=== PATIENT | female | born 1995 | race Caucasian/White ===

== ENCOUNTER 2022-04-01 02:17 | Outpatient (CLI) | payer BC, SELFPAY ==
[2022-04-01 11:23] LABS: Abs Immature Grans 0.04 10^3/uL (0.0-0.06); Absolute Basophil Count 0.06 10^3/uL (0.0-0.2); Absolute Eosinophil Count 0.61 10^3/uL (0.0-0.7); Absolute Lymphocyte Count 2.27 10^3/uL (1.2-3.4); Absolute Monocyte Count 0.71 10^3/uL (0.1-0.8); Absolute Neutrophil Count 5.88 10^3/uL (1.2-6.7); Basophils % 0.6; Eosinophils % 6.4; HCT 39.3 % (36.0-46.0); HGB 13.1 g/dL (11.2-15.7); Immature Grans % 0.4; Lymphocytes % 23.7; MCH 29.8 pg (27.0-33.0); MCHC 33.3 % (32.0-36.0); MCV 90 fL (80-95); MPV 9.1 fL (8.0-11.0); Monocytes % 7.4; Neutrophils % 61.5; Platelet Count 334 10^3/uL (130-400); RBC 4.39 10^6/uL (3.93-5.22); RDW 11.8 % (11.7-14.6); RDW-SD 38.2 fL; WBC 9.57 10^3/uL (4.4-10.8)
[2022-04-01 11:41] LABS: Glucose,1 Hr (Glucola) 134 mg/dL (80-140)
[2022-04-01 12:00] LABS: TSH (W/Ref FT4) 1.42 uIU/mL (0.36-3.74)
[2022-04-02 09:29] LABS: Hepatitis B Surface Ag Negative (Negative)
[2022-04-02 10:13] LABS: Hepatitis C Ab w Rflx HCV PCR Negative (Negative)
[2022-04-02 10:38] LABS: HIV-1/2 Ag & Ab Screen Negative (Negative)
[2022-04-02 11:37] LABS: Varicella IgG Antibody Positive (See Note)
[2022-04-02 11:46] LABS: Rubella IgG Ab (UVM) Positive (See Note)
[2022-04-02 22:57] LABS: Syphilis IgG w/Reflex Nonreactive (Nonreactive)
== END 2022-04-01 02:18 | disposition home or self-care (01) ==
LOC: LBO 02:17
PROVIDERS: Visit Provider Advanced Practice Midwife
DX: Z34.91 Encounter for supervision of normal pregnancy, unspecified, first trimester
CPT/HCPCS: 36415; 82950; 86787; 86803; 86850; 86900; 86901; 87340; 87389; 84443; 85025; 86762; 86780

== ENCOUNTER 2022-04-01 11:44 | Outpatient (REF) | payer BC, SELFPAY ==
--- NOTE | 2022-04-01 10:00 | PAPFT_PTH ---
PATIENT: Sakshi Wilcox LOC: [facility] U#:[id number] AGE/SX: 26/F ROOM: RE04/01/[address]: Christal Mcnally CNM : 1995 BED: DIS: 04/01/2022 SPEC #: [id number] RECD: 04/01/22 13:06 STATUS: GALE RESalty #: [id number] VERONA: 04/01/22 10:[address]: Christal Mcnally DEPT: [facility] Cytology RECD BY: Mai Ceja Tissues: 1 - CX/ENDOCX FOR PAP SMEARS Procedures: PAP THIN PREP/UVM Screening HPV DNA PROBE Comments: [id number] (CHLAMYDIA/GC)
[2022-04-01 15:41] LABS: *AMPHETAMINES SCREEN URINE Negative (Negative); *BARBITURATES SCREEN URINE Negative (Negative); *BENZODIAZEPINES SCREEN URINE Negative (Negative); Cannabinoids THC Negative (Negative); Cocaine Screen,Urine Negative (Negative); METHADONE URINE SCREEN Negative (Negative); OPIATES URINE SCREEN Negative (Negative)
[2022-04-01 15:50] LABS: Tricyclic Antidepressants Negative (Negative)
[2022-04-02 14:30] LABS: Chlamydia Result Negative (Negative); GC Result Negative (Negative)
[2022-04-07 11:23] LABS: Buprenorphine Negative ng/mL (Cutoff: 5.0); Norbuprenorphine Negative ng/mL (Cutoff: 2.5)
== END 2022-04-01 11:45 | disposition home or self-care (01) ==
LOC: LBN 11:44
PROVIDERS: Visit Provider Advanced Practice Midwife
DX: Z34.91 Encounter for supervision of normal pregnancy, unspecified, first trimester (principal); Z11.3 Encounter for screening for infections with a predominantly sexual mode of transmission; Z12.4 Encounter for screening for malignant neoplasm of cervix; Z3A.11 11 weeks gestation of pregnancy; Z11.51 Encounter for screening for human papillomavirus (HPV)
CPT/HCPCS: 80307; 80348; 87491; 87591; 88142; 87086; 87624

== ENCOUNTER 2022-05-26 01:11 | Outpatient (CLI) | payer BC, SELFPAY ==
--- NOTE | 2022-05-26 07:30 | DI.US_ITS ---
Exam(s) US OB 2-3 TRIMESTER W MOD EXAM: US OB 2-3 TRIMESTER W MOD CLINICAL HISTORY: anatomy survey,z34.90. TECHNIQUE: Transabdominal obstetrical ultrasound was performed. COMPARISON: US POCUS EXAM from 03/10/2022 FINDINGS: There is a single viable intrauterine gestation with cardiac activity identified-144 bpm. Amniotic fluid: There is a normal amount of amniotic fluid. Placental location: The placenta is posterior grade 1,with no evidence of placenta previa.Distance fr om the tip of the placenta to the in internal cervical os is 3.2 cm ANATOMY: A 3 vessel umbilical cord is seen. A four-chamber cardiac view was obtained. Right and left ventricular outflow tracts were imaged. There are no obvious abnormalities of the spinal column evident. There is no obvious abnormal ity of the anterior abdominal wall. stomach and urinary bladder are identified and there is no evidence of hydronephrosis. No abnormalities of the upper lip region are identified. No evidence of choroid plexus cysts i n the brain. Dating parameters place this at approximately 20 weeks and 2 days gestational age. BPD measures 20 weeks and 4 days HC measures 20 weeks and 4 days AC measures 20 weeks and 1 day FL measures 20 weeks and 0 days Estimated weight is 336 gm-0 pounds, 12 ounces. Fetus is at the 79th percentile on the Hadlock scale. IMPRESSION:: Single viable intrauterine gestation which is approximately 20 weeks and 2 days gestati onal age, implying an LORENZO of 10/11/2022. There are no obvious anomalies evident on today's study. The placenta is posterior with no evidence of placenta previa. There is a normal amount of amniotic fluid. DATA REPOSITORY:
== END 2022-05-26 01:31 ==
LOC: DI 01:11
PROVIDERS: Visit Provider Advanced Practice Midwife
DX: Z34.92 Encounter for supervision of normal pregnancy, unspecified, second trimester (principal); Z3A.20 20 weeks gestation of pregnancy
CPT/HCPCS: 76805

== ENCOUNTER 2022-07-21 04:21 | Outpatient (CLI) | payer BC, SELFPAY ==
[2022-07-21 11:51] LABS: Glucose,1 Hr (Glucola) 109 mg/dL (80-140); HCT 35.2 % (36.0-46.0); HGB 11.6 g/dL (11.2-15.7); MCH 30.2 pg (27.0-33.0); MCV 92 fL (80-95); MPV 9.2 fL (8.0-11.0); Platelet Count 324 10^3/uL (130-400); RBC 3.84 10^6/uL (3.93-5.22); RDW 12.4 % (11.7-14.6); RDW-SD 41.4 fL; WBC 13.66 10^3/uL (4.4-10.8)
== END 2022-07-21 04:22 | disposition home or self-care (01) ==
LOC: LBO 04:21
PROVIDERS: Visit Provider Advanced Practice Midwife
DX: Z34.92 Encounter for supervision of normal pregnancy, unspecified, second trimester (principal); Z3A.27 27 weeks gestation of pregnancy
CPT/HCPCS: 36415; 82950; 85027

== ENCOUNTER 2022-09-22 11:48 | Outpatient (REF) | payer BC, SELFPAY ==
[2022-09-22 14:07] LABS: *AMPHETAMINES SCREEN URINE Negative (Negative); *BARBITURATES SCREEN URINE Negative (Negative); *BENZODIAZEPINES SCREEN URINE Negative (Negative); Cannabinoids THC Negative (Negative); Cocaine Screen,Urine Negative (Negative); METHADONE URINE SCREEN Negative (Negative); OPIATES URINE SCREEN Negative (Negative)
[2022-09-22 14:08] LABS: Tricyclic Antidepressants Negative (Negative)
[2022-10-01 14:50] LABS: Buprenorphine Negative ng/mL (Cutoff: 5.0)
== END 2022-09-22 11:49 | disposition home or self-care (01) ==
LOC: LBN 11:48
PROVIDERS: Visit Provider Advanced Practice Midwife
DX: Z34.93 Encounter for supervision of normal pregnancy, unspecified, third trimester (principal); Z36.85 Encounter for antenatal screening for Streptococcus B; Z3A.36 36 weeks gestation of pregnancy
CPT/HCPCS: 80307; 80348; 87081

== ENCOUNTER → 2022-09-29 01:33 | Outpatient (CLI) | payer BC, SELFPAY ==
--- NOTE | 2022-09-29 06:45 | DI.US_ITS ---
Exam(s) US OB KEITH WEIGHT EXAM: US OB KEITH WEIGHT CLINICAL HISTORY: LARGE FOR DATES,[id number]. TECHNIQUE: Transabdominal obstetrical ultrasound performed. COMPARISON: US POCUS EXAM from 03/10/2022 US US OB 2-3 TRIMESTER W MOD from 05/26/2022 FINDINGS:: Number of fetuses: One. position: Vertex. Placental location: Posterior. No evidence of previa. BIOMETRIC DATA: BPD: 97mm = 39+ 3 weeks HC: 366mm = above normal range weeks AC: 360mm = 39+ 5 weeks FL: 75 mm = 38+ 1 weeks EFW: 3904 Gms = greater than 97% Composite Age: 39+ 1 weeks EDC: October 06 Heart Rate: 137BPM Amniotic fluid index: 10.1 cm. Amount of fluid is visually within normal limits. IMPRESSION: size and weight are measuring large for dates by nearly 2 weeks.. DATA REPOSITORY:
== END ==
PROVIDERS: Visit Provider Advanced Practice Midwife
DX: O36.63X1 Maternal care for excessive fetal growth, third trimester, fetus 1 (principal); Z3A.37 37 weeks gestation of pregnancy
CPT/HCPCS: 76816

== ENCOUNTER 2022-10-13 10:43 | Outpatient (CLI) | payer BC, SELFPAY ==
[2022-10-13 10:51] VITALS: BP 137/82; PULSE 68; TEMP 36.5
[2022-10-13 11:18] LABS: HCT 36.8 % (36.0-46.0); HGB 12.2 g/dL (11.2-15.7); MCH 29.5 pg (27.0-33.0); MCHC 33.2 % (32.0-36.0); MCV 89 fL (80-95); MPV 10.1 fL (8.0-11.0); Platelet Count 290 10^3/uL (130-400); RBC 4.13 10^6/uL (3.93-5.22); RDW 12.9 % (11.7-14.6); RDW-SD 41.9 fL; WBC 12.06 10^3/uL (4.4-10.8)
[2022-10-13 11:25] VITALS: BP 139/77; PULSE 70
[2022-10-13 11:35] LABS: ALT 24 U/L (14-59); AST 21 U/L (15-37); Albumin 2.8 g/dL (3.4-5.0); Alkaline Phosphatase 135 U/L (46-116); Anion Gap 11.7 mmol/L (3-11); BUN 11 mg/dL (7-18); Bilirubin, Total 0.3 mg/dL (0.2-1.0); CO2 22.3 mmol/L (21.0-32.0); CREATININE 0.7 mg/dL (0.55-1.02); Calcium 9.1 mg/dL (8.5-10.1); Chloride 99 mmol/L (98-107); Estimated GFR 119.99 (mL/min/1.73m2); Glucose 96 mg/dL (74-106); Potassium 4.2 mmol/L (3.5-5.1); Sodium 133 mmol/L (136-145); Uric Acid 5.3 mg/dL (2.6-6.0)
--- NOTE | 2022-10-13 12:17 | W.OBNST ---
Date of service: 10/13/22 Time of Service: 12:18 NST Evaluation Reason for NST Reasons for Nonstress Test: OTHER, SEE COMMENT Reason for NST Other: Elevated BP in office Gestational Age Gestational Age in Weeks and Days: 39 Weeks and 4Days Test and Monitor Explained Test/Monitor Explained: Test Explained, Monitor Explained and Patient Verbalized Understanding Vital Signs Blood Pressure: 137/82 Pulse: 68 Temperature: 97.7 F Urine Results Urine Protein: Negative Urine Ketones: Negative Urine Glucose: Negative Urine Blood: Negative NST Information Date on Monitor: 10/13/22 Time on Monitor: 10:13 Date off Monitor: 10/13/22 Time off Monitor: 11:25 Total Time on Monitor: 72 NST Interventions: PO Hydration and Notify Provider Contraction Frequency: None NST Evaluation Patient States Movement: Present FHR Baseline: 125 Variability: Moderate 6-25 bpm Accelerations: 15x15 Decelerations: None NST Results: Reactive Note Ultrasound Done: N/A. NST Note Note: BP 130's over 80's. pt denies sx Lab drawn and pending Pt to return for NST and BP check in 3 days. NST Reviewed and Verified by: Christal Mcnally
[2022-10-13 12:19] VITALS: BP 137/82; PULSE 68; TEMP 36.5
[2022-10-13 12:26] LABS: COMMENT (LAB VIEW ONLY) 29.15 mg/dL; PROTEIN 14.8 mg/dL
== END 2022-10-13 11:45 | disposition home or self-care (01) ==
LOC: BCD 10:44 → OBS 10:50
PROVIDERS: Visit Provider Advanced Practice Midwife
DX: R03.0 Elevated blood-pressure reading, without diagnosis of hypertension (principal); O26.893 Other specified pregnancy related conditions, third trimester; Z3A.39 39 weeks gestation of pregnancy
CPT/HCPCS: 80053; 85027; 59025; 82565; 84156; 84550

== ENCOUNTER 2022-10-14 08:27 | Inpatient (IN) | payer BC, SELFPAY ==
[2022-10-14] VITALS (7 sets, daily range): BP systolic 127–147; BP diastolic 65–74; PULSE 71–87; RESP 16–18; TEMP 36.4–36.6; O2SAT 98–100
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
[2022-10-14] MEDS: miSOPROStol 25 MCG TAB 50 MCG PO ×4 (09:59→22:53)
[2022-10-14 10:00] LABS: HCT 36.1 % (36.0-46.0); HGB 11.9 g/dL (11.2-15.7); MCH 29.4 pg (27.0-33.0); MCV 89 fL (80-95); MPV 10.3 fL (8.0-11.0); Platelet Count 289 10^3/uL (130-400); RBC 4.05 10^6/uL (3.93-5.22); RDW 12.9 % (11.7-14.6); RDW-SD 42.2 fL; WBC 11.28 10^3/uL (4.4-10.8)
[2022-10-14 10:15] LABS: ALT 23 U/L (14-59); AST 20 U/L (15-37); Albumin 2.9 g/dL (3.4-5.0); Alkaline Phosphatase 139 U/L (46-116); Anion Gap 10.8 mmol/L (3-11); BUN 9 mg/dL (7-18); Bilirubin, Total 0.3 mg/dL (0.2-1.0); CO2 24.2 mmol/L (21.0-32.0); CREATININE 0.7 mg/dL (0.55-1.02); Calcium 9.6 mg/dL (8.5-10.1); Chloride 102 mmol/L (98-107); Estimated GFR 119.99 (mL/min/1.73m2); Glucose 134 mg/dL (74-106); Potassium 4.6 mmol/L (3.5-5.1); Sodium 137 mmol/L (136-145); Total Protein 7.3 g/dL (6.4-8.2)
[2022-10-14 15:55] LABS: Hemoglobin A1C 5.9 % (<5.7)
--- NOTE | 2022-10-14 18:27 | W.PM.OBNL1 ---
Date of service: 10/14/22 Time of Service: 18:27 Informed Consent Informed Consent: Induction of Labor and Risk,Benefits,Alternatives Discussed Pelvic Exam Dilation: 0.5 Effacement (%): 60 station: -4 Cervix Position: mid Consistency: medium BISHOPS Score(Cervical Ripeness Score): 4 Contractions Monitor Mode: External Contraction Frequency(min): 2 in 10 minutes Intensity: Mild Fetus A Monitor: External (US) Heart Rate Baseline: 140 Variability: Moderate (6-25 BPM) Categories: Category I Accelerations: 15 X 15 Decelerations: None Amniotic Membrane Status: Intact Assessment and Plan Assessment and plan (1) Encounter for induction of labor: Status: Acute Assessment and plan: A: pre-eclampsia, mild range without severe features, stable IOL @ 39+5 wks via cervical ripening Gotti score 4, category 1 tracing P: Continue current plan of care, Misoprostel protocol x2 or 3 more doses, then rest until morning Will check fasting glucose in am Dr. Grace previously updated on pt status Objective Abnormal lab results 10/14/22 10/14/22 10/14/22 Range/Units 09:40 09:40 09:40 WBC 11.28 H (4.4-10.8) 10^3/uL Glucose 134 H (74-106) mg/dL Hemoglobin A1c 5.9 H (<5.7) % Alkaline Phosphatase 139 H (46-116) U/L Albumin 2.9 L (3.4-5.0) g/dL Temp Pulse Resp BP Pulse Ox 97.9 F 75 16 127/72 100 10/14/22 13:53 10/14/22 18:22 10/14/22 16:10 10/14/22 18:22 10/14/22 16:10 Laboratory Results WBC 11.28 10^3/uL (4.4-10.8) H 10/14/22 09:40 RBC 4.05 10^6/uL (3.93-5.22) 10/14/22 09:40 Hgb 11.9 g/dL (11.2-15.7) 10/14/22 09:40 Hct 36.1 % (36.0-46.0) 10/14/22 09:40 MCV 89 fL (80-95) 10/14/22 09:40 MCH 29.4 pg (27.0-33.0) 10/14/22 09:40 MCHC 33.0 % (32.0-36.0) 10/14/22 09:40 RDW 12.9 % (11.7-14.6) 10/14/22 09:40 Plt Count 289 10^3/uL (130-400) 10/14/22 09:40 MPV 10.3 fL (8.0-11.0) 10/14/22 09:40 Sodium 137 mmol/L (136-145) 10/14/22 09:40 Potassium 4.6 mmol/L (3.5-5.1) 10/14/22 09:40 Chloride 102 mmol/L (98-107) 10/14/22 09:40 Carbon Dioxide 24.2 mmol/L (21.0-32.0) 10/14/22 09:40 Anion Gap 10.8 mmol/L (3-11) 10/14/22 09:40 BUN 9 mg/dL (7-18) 10/14/22 09:40 Creatinine 0.7 mg/dL (0.55-1.02) 10/14/22 09:40 Est GFR (CKD-EPI 2020) 119.99 (mL/min/1.73m2) 10/14/22 09:40 Glucose 134 mg/dL (74-106) H 10/14/22 09:40 Hemoglobin A1c 5.9 % (<5.7) H 10/14/22 09:40 Calcium 9.6 mg/dL (8.5-10.1) 10/14/22 09:40 Total Bilirubin 0.3 mg/dL (0.2-1.0) 10/14/22 09:40 AST 20 U/L (15-37) 10/14/22 09:40 ALT 23 U/L (14-59) 10/14/22 09:40 Alkaline Phosphatase 139 U/L (46-116) H 10/14/22 09:40 Total Protein 7.3 g/dL (6.4-8.2) 10/14/22 09:40 Albumin 2.9 g/dL (3.4-5.0) L 10/14/22 09:40 Patient ABO/Rh B Positive 10/14/22 09:40 Antibody Screen NEGATIVE 10/14/22 09:40 Vital Signs Reviewed: Yes Objective Narrative Objective Narrative: BP very stable and has decreased from mild range to normotensive Pt continues to deny severe features or sx Random glucose on admit was 134, checked 1 hr postprandial after [id number] HgbA1C noted @ 5.9, suggesting some level of impaired glucose metabolism in third trimester Has had two doses of misoprostel 50 mcg PO Gotti score has advanced from 2 to 4 Category 1 tracing Subjective Interval history since last seen: Has felt lower abd cramps this afternoon, and generally abd feels tight. Good appetite, ambulating well and voiding qs.
[2022-10-14] MEDS: Zolpidem 5 MG TAB PO (22:53)
[2022-10-15] VITALS (8 sets, daily range): BP systolic 105–133; BP diastolic 57–78; PULSE 68–89; RESP 12–16; TEMP 36.5; O2SAT 96–99
[2022-10-15] MEDS: miSOPROStol 25 MCG TAB 50 MCG VG ×2 (09:27→14:35)
--- NOTE | 2022-10-15 09:48 | W.PM.OBNL1 ---
Date of service: 10/15/22 Time of Service: 09:48 Informed Consent Informed Consent: Induction of Labor and Risk,Benefits,Alternatives Discussed Pelvic Exam Dilation: 0.5 Effacement (%): 25 station: -2 Cervix Position: posterior Consistency: medium Vaginal Exam Presentation: Vertex Contractions Monitor Mode: External Contraction Frequency(min): every 4-5 Contraction Duration(sec): 40-50 Intensity: Mild/Moderate Fetus A Monitor: External (US) Heart Rate Baseline: 130 Presentation: Vertex Variability: Moderate (6-25 BPM) Categories: Category I Accelerations: 15 X 15 Decelerations: None Assessment and Plan Assessment and plan (1) Encounter for induction of labor: Status: Acute Assessment and plan: Reviewed options of misoprostol, cervical ripening balloon and cervidil. Sakshi opts for cervical ripening balloon and misoprostol. Cervical ripening balloon attempted without speculum and unsuccessful due to the posterior angle of the cervix and the baby's head being well applied to the cervix. Speculum placed but Sakshi became emotional when the speculum was placed and she asked for a break. Will reattempt when patient feels ready. misoprostol 50 mcg placed in vagina. Patient requested a break from the monitor to ambulate and the monitor was removed and will replace the monitor for 2 hour monitoring period after her walk. (2) Pre-eclampsia during in third trimester, antepartum: Status: Acute Assessment and plan: BP 130-138/66-78. Will continue to assess BP readings. Objective Abnormal lab results 10/14/22 10/14/22 10/14/22 Range/Units 09:40 09:40 09:40 WBC 11.28 H (4.4-10.8) 10^3/uL Glucose 134 H (74-106) mg/dL Hemoglobin A1c 5.9 H (<5.7) % Alkaline Phosphatase 139 H (46-116) U/L Albumin 2.9 L (3.4-5.0) g/dL Temp Pulse Resp BP Pulse Ox 97.7 F 73 12 130/66 99 10/15/22 07:19 10/15/22 09:13 10/15/22 07:19 10/15/22 09:13 10/15/22 07:19 Laboratory Results WBC 11.28 10^3/uL (4.4-10.8) H 10/14/22 09:40 RBC 4.05 10^6/uL (3.93-5.22) 10/14/22 09:40 Hgb 11.9 g/dL (11.2-15.7) 10/14/22 09:40 Hct 36.1 % (36.0-46.0) 10/14/22 09:40 MCV 89 fL (80-95) 10/14/22 09:40 MCH 29.4 pg (27.0-33.0) 10/14/22 09:40 MCHC 33.0 % (32.0-36.0) 10/14/22 09:40 RDW 12.9 % (11.7-14.6) 10/14/22 09:40 Plt Count 289 10^3/uL (130-400) 10/14/22 09:40 MPV 10.3 fL (8.0-11.0) 10/14/22 09:40 Sodium 137 mmol/L (136-145) 10/14/22 09:40 Potassium 4.6 mmol/L (3.5-5.1) 10/14/22 09:40 Chloride 102 mmol/L (98-107) 10/14/22 09:40 Carbon Dioxide 24.2 mmol/L (21.0-32.0) 10/14/22 09:40 Anion Gap 10.8 mmol/L (3-11) 10/14/22 09:40 BUN 9 mg/dL (7-18) 10/14/22 09:40 Creatinine 0.7 mg/dL (0.55-1.02) 10/14/22 09:40 Est GFR (CKD-EPI 2020) 119.99 (mL/min/1.73m2) 10/14/22 09:40 Glucose 134 mg/dL (74-106) H 10/14/22 09:40 Hemoglobin A1c 5.9 % (<5.7) H 10/14/22 09:40 Calcium 9.6 mg/dL (8.5-10.1) 10/14/22 09:40 Total Bilirubin 0.3 mg/dL (0.2-1.0) 10/14/22 09:40 AST 20 U/L (15-37) 10/14/22 09:40 ALT 23 U/L (14-59) 10/14/22 09:40 Alkaline Phosphatase 139 U/L (46-116) H 10/14/22 09:40 Total Protein 7.3 g/dL (6.4-8.2) 10/14/22 09:40 Albumin 2.9 g/dL (3.4-5.0) L 10/14/22 09:40 Patient ABO/Rh B Positive 10/14/22 09:40 Antibody Screen NEGATIVE 10/14/22 09:40 Objective Narrative Objective Narrative: +1 pitting edema. Subjective Interval history since last seen: Sakshi slept well last night and is having mild, irregular contractions. HGb A1c 5.9. post prandial glucose last night was 136. Fasting glucose this morning was 86. Results Hemoglobin/Hematocrit: Hgb 11.9 g/dL (11.2-15.7) 10/14/22 09:40 Hct 36.1 % (36.0-46.0) 10/14/22 09:40 Abnormal Lab Findings: Abnormal Labs 10/14/22 10/14/22 10/14/22 09:40 09:40 09:40 WBC 11.28 H Glucose 134 H Hemoglobin A1c 5.9 H Alkaline Phosphatase 139 H Albumin 2.9 L
--- NOTE | 2022-10-15 15:32 | PGE_ITS ---
Date of service: 10/15/22 Time of Service: 15:32 Informed Consent Informed Consent: Induction of Labor and Risk,Benefits,Alternatives Discussed Pelvic Exam Dilation: 0.5 Effacement (%): 40 station: -3 Cervix Position: posterior Consistency: medium Contractions Monitor Mode: External Contraction Frequency(min): every 4 Contraction Duration(sec): 50-70 Intensity: Mild/Moderate Fetus A Monitor: External (US) Heart Rate Baseline: 135 Presentation: Vertex Variability: Moderate (6-25 BPM) Categories: Category I Accelerations: 15 X 15 Decelerations: None Amniotic Membrane Status: Intact Assessment and Plan Assessment and plan (1) Encounter for induction of labor: Status: Acute Assessment and plan: Misoprostol 50 mcg PV adminsitered and second attempt at balloon placement offered. Sakshi would like to proceed with balloon and it was placed and infl ated to 60cc in each balloon. Sakshi tolerated this well. Will continue to assess progress in labor and will remove the ripening balloon in 12 hours unless there is evidence of active labor. (2) Pre-eclampsia during in third trimester, antepartum: Status: Acute Assessment and plan: BP 122-126/69. 1+ pitting edema. Patients status reviewed with Dr. Isaac. Objective Abnormal lab results 10/14/22 Range/Units 09:40 Hemoglobin A1c 5.9 H (<5.7) % Temp Pulse Resp BP Pulse Ox 97.7 F 80 16 126/61 98 10/15/22 14:01 10/15/22 14:01 10/15/22 14:01 10/15/22 14:01 10/15/22 14:01 Laboratory Results WBC 11.28 10^3/uL (4.4-10.8) H 10/14/22 09:40 RBC 4.05 10^6/uL (3.93-5.22) 10/14/22 09:40 Hgb 11.9 g/dL (11.2-15.7) 10/14/22 09:40 Hct 36.1 % (36.0-46.0) 10/14/22 09:40 MCV 89 fL (80-95) 10/14/22 09:40 MCH 29.4 pg (27.0-33.0) 10/14/22 09:40 MCHC 33.0 % (32.0-36.0) 10/14/22 09:40 RDW 12.9 % (11.7-14.6) 10/14/22 09:40 Plt Count 289 10^3/uL (130-400) 10/14/22 09:40 MPV 10.3 fL (8.0-11.0) 10/14/22 09:40 Sodium 137 mmol/L (136-145) 10/14/22 09:40 Potassium 4.6 mmol/L (3.5-5.1) 10/14/22 09:40 Chloride 102 mmol/L (98-107) 10/14/22 09:40 Carbon Dioxide 24.2 mmol/L (21.0-32.0) 10/14/22 09:40 Anion Gap 10.8 mmol/L (3-11) 10/14/22 09:40 BUN 9 mg/dL (7-18) 10/14/22 09:40 Creatinine 0.7 mg/dL (0.55-1.02) 10/14/22 09:40 Est GFR (CKD-EPI 2020) 119.99 (mL/min/1.73m2) 10/14/22 09:40 Glucose 134 mg/dL (74-106) H 10/14/22 09:40 Hemoglobin A1c 5.9 % (<5.7) H 10/14/22 09:40 Calcium 9.6 mg/dL (8.5-10.1) 10/14/22 09:40 Total Bilirubin 0.3 mg/dL (0.2-1.0) 10/14/22 09:40 AST 20 U/L (15-37) 10/14/22 09:40 ALT 23 U/L (14-59) 10/14/22 09:40 Alkaline Phosphatase 139 U/L (46-116) H 10/14/22 09:40 Total Protein 7.3 g/dL (6.4-8.2) 10/14/22 09:40 Albumin 2.9 g/dL (3.4-5.0) L 10/14/22 09:40 Patient ABO/Rh B Positive 10/14/22 09:40 Antibody Screen NEGATIVE 10/14/22 09:40 Subjective Interval history since last seen: Sakshi has been ambulating and showering and is experiencing mild cramping. Results Hemoglobin/Hematocrit: Hgb 11.9 g/dL (11.2-15.7) 10/14/22 09:40 Hct 36.1 % (36.0-46.0) 10/14/22 09:40 Abnormal Lab Findings: Abnormal Labs 10/14/22 10/14/22 10/14/22 09:40 09:40 09:40 WBC 11.28 H Glucose 134 H Hemoglobin A1c 5.9 H Alkaline Phosphatase 139 H Albumin 2.9 L
[2022-10-15] MEDS: Zolpidem 5 MG TAB PO (19:35)
[2022-10-16] VITALS (245 sets, daily range): BP systolic 121–167; BP diastolic 63–86; PULSE 0–112; RESP 17–20; TEMP 36.5–36.9; O2SAT 97–100; BMI 43.7
--- NOTE | 2022-10-16 08:25 | W.PM.OBNL1 ---
Date of service: 10/16/22 Time of Service: 08:25 Informed Consent Informed Consent: Induction of Labor and Risk,Benefits,Alternatives Discussed Pelvic Exam Dilation: 2 Effacement (%): 5 Cervix Position: posterior Consistency: soft BISHOPS Score(Cervical Ripeness Score): 7 Contractions Monitor Mode: External Contraction Frequency(min): every 4-5 Contraction Duration(sec): 50-60 Intensity: Moderate Fetus A Monitor: External (US) Heart Rate Baseline: 135 Presentation: Vertex Variability: Moderate (6-25 BPM) Categories: Category I Accelerations: 15 X 15 Decelerations: None Amniotic Membrane Status: Intact Assessment and Plan Assessment and plan (1) Encounter for induction of labor: Status: Acute Assessment and plan: Reviewed options of continued cervical ripening with cervidil or pitocin infusion or elective section. Sakshi would like to proceed with pitocin infusion and hopes for a vaginal delivery. Dr. Isaac came in and met Sakshi and is aware of this plan. Comfort measures including nitrous oxide and epidural discussed. Objective Temp Pulse Resp BP Pulse Ox 97.9 F 82 18 129/72 98 10/16/22 07:07 10/16/22 07:07 10/16/22 07:07 10/16/22 07:07 10/16/22 07:07 Laboratory Results WBC 11.28 10^3/uL (4.4-10.8) H 10/14/22 09:40 RBC 4.05 10^6/uL (3.93-5.22) 10/14/22 09:40 Hgb 11.9 g/dL (11.2-15.7) 10/14/22 09:40 Hct 36.1 % (36.0-46.0) 10/14/22 09:40 MCV 89 fL (80-95) 10/14/22 09:40 MCH 29.4 pg (27.0-33.0) 10/14/22 09:40 MCHC 33.0 % (32.0-36.0) 10/14/22 09:40 RDW 12.9 % (11.7-14.6) 10/14/22 09:40 Plt Count 289 10^3/uL (130-400) 10/14/22 09:40 MPV 10.3 fL (8.0-11.0) 10/14/22 09:40 Sodium 137 mmol/L (136-145) 10/14/22 09:40 Potassium 4.6 mmol/L (3.5-5.1) 10/14/22 09:40 Chloride 102 mmol/L (98-107) 10/14/22 09:40 Carbon Dioxide 24.2 mmol/L (21.0-32.0) 10/14/22 09:40 Anion Gap 10.8 mmol/L (3-11) 10/14/22 09:40 BUN 9 mg/dL (7-18) 10/14/22 09:40 Creatinine 0.7 mg/dL (0.55-1.02) 10/14/22 09:40 Est GFR (CKD-EPI 2020) 119.99 (mL/min/1.73m2) 10/14/22 09:40 Glucose 134 mg/dL (74-106) H 10/14/22 09:40 Hemoglobin A1c 5.9 % (<5.7) H 10/14/22 09:40 Calcium 9.6 mg/dL (8.5-10.1) 10/14/22 09:40 Total Bilirubin 0.3 mg/dL (0.2-1.0) 10/14/22 09:40 AST 20 U/L (15-37) 10/14/22 09:40 ALT 23 U/L (14-59) 10/14/22 09:40 Alkaline Phosphatase 139 U/L (46-116) H 10/14/22 09:40 Total Protein 7.3 g/dL (6.4-8.2) 10/14/22 09:40 Albumin 2.9 g/dL (3.4-5.0) L 10/14/22 09:40 Patient ABO/Rh B Positive 10/14/22 09:40 Antibody Screen NEGATIVE 10/14/22 09:40 Subjective Interval history since last seen: Sakshi slept well last night with ambien PO. She stated that she feels rested. The cervical ripening balloon was deflated and removed at 0300 and Sakshi went back to sleep. She awoke and wished to eat breakfast before deciding about next steps in the cervical ripening process. Results Hemoglobin/Hematocrit: Hgb 11.9 g/dL (11.2-15.7) 10/14/22 09:40 Hct 36.1 % (36.0-46.0) 10/14/22 09:40 Abnormal Lab Findings: Abnormal Labs 10/14/22 10/14/22 10/14/22 09:40 09:40 09:40 WBC 11.28 H Glucose 134 H Hemoglobin A1c 5.9 H Alkaline Phosphatase 139 H Albumin 2.9 L
[2022-10-16] MEDS: Lactated Ringers 1,000 ML 125 ML IV ×2 (08:58→17:30)
[2022-10-16] MEDS: Oxytocin/Normal Saline 30 UNITS/500 ML BAG IV (09:00)
[2022-10-16] MEDS: Oxytocin/Normal Saline 30 UNIT/500 ML BAG 2 UNITS IV (09:00)
[2022-10-16 09:38] LABS: HCT 37.3 % (36.0-46.0); HGB 12.5 g/dL (11.2-15.7); MCH 29.5 pg (27.0-33.0); MCHC 33.5 % (32.0-36.0); MCV 88 fL (80-95); MPV 10.1 fL (8.0-11.0); Platelet Count 312 10^3/uL (130-400); RBC 4.24 10^6/uL (3.93-5.22); RDW 12.8 % (11.7-14.6); RDW-SD 41.1 fL; WBC 14.85 10^3/uL (4.4-10.8)
[2022-10-16 09:54] LABS: ALT 19 U/L (14-59); AST 15 U/L (15-37); Alkaline Phosphatase 153 U/L (46-116); BUN 9 mg/dL (7-18); Bilirubin, Total 0.3 mg/dL (0.2-1.0); CREATININE 0.8 mg/dL (0.55-1.02); Calcium 9.2 mg/dL (8.5-10.1); Chloride 102 mmol/L (98-107); Estimated GFR 102.22 (mL/min/1.73m2); Glucose 126 mg/dL (74-106); Sodium 135 mmol/L (136-145); Total Protein 7.5 g/dL (6.4-8.2)
--- NOTE | 2022-10-16 15:33 | W.PM.OBNL1 ---
Date of service: 10/16/22 Time of Service: 15:34 Informed Consent Informed Consent: Induction of Labor and Risk,Benefits,Alternatives Discussed Pelvic Exam Comments: exam deferred Contractions Monitor Mode: External Contraction Frequency(min): every 2-3 Contraction Duration(sec): 50-60 Intensity: Mild/Moderate Fetus A Monitor: External (US) Heart Rate Baseline: 135 Presentation: Vertex Variability: Moderate (6-25 BPM) Categories: Category I Accelerations: 15 X 15 Decelerations: None Amniotic Membrane Status: Intact Assessment and Plan Assessment and plan (1) Encounter for induction of labor: Status: Acute Assessment and plan: Discussed options with Sakshi, including increasing the pitocin to 30 mu/min and assessing for cervical change. Sakshi declines cervical exam at this time and would like to wait until 1700. We discussed stopping the pitocin and administering cervidil tonight at 1800 if there is no evidence of active labor. Sakshi agrees with this plan. (2) Pre-eclampsia during in third trimester, antepartum: Status: Acute Assessment and plan: BP 121-135/71-86. No edema noted. Denies headache or other symptoms of preeclampsia. CMP and CBC repeated this morning with Blood sugar of 126 after breakfast. Objective Abnormal lab results 10/16/22 10/16/22 Range/Units 09:30 09:30 WBC 14.85 H (4.4-10.8) 10^3/uL Sodium 135 L (136-145) mmol/L Glucose 126 H (74-106) mg/dL Alkaline Phosphatase 153 H (46-116) U/L Albumin 3.0 L (3.4-5.0) g/dL Temp Pulse Resp BP Pulse Ox 98.2 F 68 20 123/71 100 10/16/22 12:59 10/16/22 15:33 10/16/22 12:59 10/16/22 15:31 10/16/22 15:31 Laboratory Results WBC 14.85 10^3/uL (4.4-10.8) H 10/16/22 09:30 RBC 4.24 10^6/uL (3.93-5.22) 10/16/22 09:30 Hgb 12.5 g/dL (11.2-15.7) 10/16/22 09:30 Hct 37.3 % (36.0-46.0) 10/16/22 09:30 MCV 88 fL (80-95) 10/16/22 09:30 MCH 29.5 pg (27.0-33.0) 10/16/22 09:30 MCHC 33.5 % (32.0-36.0) 10/16/22 09:30 RDW 12.8 % (11.7-14.6) 10/16/22 09:30 Plt Count 312 10^3/uL (130-400) 10/16/22 09:30 MPV 10.1 fL (8.0-11.0) 10/16/22 09:30 Sodium 135 mmol/L (136-145) L 10/16/22 09:30 Potassium 4.0 mmol/L (3.5-5.1) 10/16/22 09:30 Chloride 102 mmol/L (98-107) 10/16/22 09:30 Carbon Dioxide 22.0 mmol/L (21.0-32.0) 10/16/22 09:30 Anion Gap 11.0 mmol/L (3-11) 10/16/22 09:30 BUN 9 mg/dL (7-18) 10/16/22 09:30 Creatinine 0.8 mg/dL (0.55-1.02) 10/16/22 09:30 Est GFR (CKD-EPI 2020) 102.22 (mL/min/1.73m2) 10/16/22 09:30 Glucose 126 mg/dL (74-106) H 10/16/22 09:30 Hemoglobin A1c 5.9 % (<5.7) H 10/14/22 09:40 Calcium 9.2 mg/dL (8.5-10.1) 10/16/22 09:30 Total Bilirubin 0.3 mg/dL (0.2-1.0) 10/16/22 09:30 AST 15 U/L (15-37) 10/16/22 09:30 ALT 19 U/L (14-59) 10/16/22 09:30 Alkaline Phosphatase 153 U/L (46-116) H 10/16/22 09:30 Total Protein 7.5 g/dL (6.4-8.2) 10/16/22 09:30 Albumin 3.0 g/dL (3.4-5.0) L 10/16/22 09:30 Patient ABO/Rh B Positive 10/14/22 09:40 Antibody Screen NEGATIVE 10/14/22 09:40 Subjective Interval history since last seen: Rea is resting comfortable in bed and pitocin is at 20 mu/min. Contractions are every 2-3 minutes and mild to mod strength. Results Hemoglobin/Hematocrit: Hgb 12.5 g/dL (11.2-15.7) 10/16/22 09:30 Hct 37.3 % (36.0-46.0) 10/16/22 09:30 Abnormal Lab Findings: Abnormal Labs 10/14/22 10/14/22 10/14/22 09:40 09:40 09:40 WBC 11.28 H Sodium Glucose 134 H Hemoglobin A1c 5.9 H Alkaline Phosphatase 139 H Albumin 2.9 L 10/16/22 10/16/22 09:30 09:30 WBC 14.85 H Sodium 135 L Glucose 126 H Hemoglobin A1c Alkaline Phosphatase 153 H Albumin 3.0 L
--- NOTE | 2022-10-16 17:19 | W.PM.OBNL1 ---
Date of service: 10/16/22 Time of Service: 17:19 Informed Consent Informed Consent: Induction of Labor and Risk,Benefits,Alternatives Discussed Pelvic Exam Dilation: 2 Effacement (%): 75 station: -2 Cervix Position: posterior Consistency: soft Pooling: Positive Comments: SROM occurred during vaginal exam for small amount of clear fluid Contractions Monitor Mode: External Contraction Frequency(min): every 5-6 min Contraction Duration(sec): 40-50 Intensity: Mild/Moderate Fetus A Monitor: External (US) Heart Rate Baseline: 140 Presentation: Vertex Variability: Moderate (6-25 BPM) Categories: Category I FHR Rhythm: Regular Accelerations: 15 X 15 Decelerations: None Amniotic Membrane Status: Ruptured Rupture Method: Spontaneous Amniotic Fluid: Clear Assessment and Plan Assessment and plan (1) Encounter for induction of labor: Status: Acute Assessment and plan: continue pitocin administration. Anticipate . Comfort measures PRN. Dr Isaac was notified of patient's status. Objective Abnormal lab results 10/16/22 10/16/22 Range/Units 09:30 09:30 WBC 14.85 H (4.4-10.8) 10^3/uL Sodium 135 L (136-145) mmol/L Glucose 126 H (74-106) mg/dL Alkaline Phosphatase 153 H (46-116) U/L Albumin 3.0 L (3.4-5.0) g/dL Temp Pulse Resp BP Pulse Ox 98.2 F 75 20 144/86 H 100 10/16/22 12:59 10/16/22 17:17 10/16/22 12:59 10/16/22 16:58 10/16/22 15:31 Laboratory Results WBC 14.85 10^3/uL (4.4-10.8) H 10/16/22 09:30 RBC 4.24 10^6/uL (3.93-5.22) 10/16/22 09:30 Hgb 12.5 g/dL (11.2-15.7) 10/16/22 09:30 Hct 37.3 % (36.0-46.0) 10/16/22 09:30 MCV 88 fL (80-95) 10/16/22 09:30 MCH 29.5 pg (27.0-33.0) 10/16/22 09:30 MCHC 33.5 % (32.0-36.0) 10/16/22 09:30 RDW 12.8 % (11.7-14.6) 10/16/22 09:30 Plt Count 312 10^3/uL (130-400) 10/16/22 09:30 MPV 10.1 fL (8.0-11.0) 10/16/22 09:30 Sodium 135 mmol/L (136-145) L 10/16/22 09:30 Potassium 4.0 mmol/L (3.5-5.1) 10/16/22 09:30 Chloride 102 mmol/L (98-107) 10/16/22 09:30 Carbon Dioxide 22.0 mmol/L (21.0-32.0) 10/16/22 09:30 Anion Gap 11.0 mmol/L (3-11) 10/16/22 09:30 BUN 9 mg/dL (7-18) 10/16/22 09:30 Creatinine 0.8 mg/dL (0.55-1.02) 10/16/22 09:30 Est GFR (CKD-EPI 2020) 102.22 (mL/min/1.73m2) 10/16/22 09:30 Glucose 126 mg/dL (74-106) H 10/16/22 09:30 Hemoglobin A1c 5.9 % (<5.7) H 10/14/22 09:40 Calcium 9.2 mg/dL (8.5-10.1) 10/16/22 09:30 Total Bilirubin 0.3 mg/dL (0.2-1.0) 10/16/22 09:30 AST 15 U/L (15-37) 10/16/22 09:30 ALT 19 U/L (14-59) 10/16/22 09:30 Alkaline Phosphatase 153 U/L (46-116) H 10/16/22 09:30 Total Protein 7.5 g/dL (6.4-8.2) 10/16/22 09:30 Albumin 3.0 g/dL (3.4-5.0) L 10/16/22 09:30 Patient ABO/Rh B Positive 10/14/22 09:40 Antibody Screen NEGATIVE 10/14/22 09:40 Subjective Interval history since last seen: Pitocin at 28 mu/min. Sakshi is very comfortable and contractions are irregular Results Hemoglobin/Hematocrit: Hgb 12.5 g/dL (11.2-15.7) 10/16/22 09:30 Hct 37.3 % (36.0-46.0) 10/16/22 09:30 Abnormal Lab Findings: Abnormal Labs 10/14/22 10/14/22 10/14/22 09:40 09:40 09:40 WBC 11.28 H Sodium Glucose 134 H Hemoglobin A1c 5.9 H Alkaline Phosphatase 139 H Albumin 2.9 L 10/16/22 10/16/22 09:30 09:30 WBC 14.85 H Sodium 135 L Glucose 126 H Hemoglobin A1c Alkaline Phosphatase 153 H Albumin 3.0 L
--- NOTE | 2022-10-16 21:40 | W.PM.OBNL1 ---
Date of service: 10/16/22 Time of Service: 21:40 Informed Consent Informed Consent: Induction of Labor and Risk,Benefits,Alternatives Discussed Pelvic Exam Dilation: 3 Effacement (%): 75 Cervix Position: posterior Consistency: soft Vaginal Exam Presentation: Cephalic Contractions Monitor Mode: External Contraction Frequency(min): 3 Contraction Duration(sec): 50-70 Intensity: Moderate/Strong Fetus A Monitor: External (US) Heart Rate Baseline: 140 Variability: Moderate (6-25 BPM) Categories: Category I Accelerations: 15 X 15 Decelerations: Variable Recurrence: Episodic Amniotic Membrane Status: Ruptured Assessment and Plan Assessment and plan (1) Encounter for induction of labor: Status: Acute Assessment and plan: Will prepare for epidural placement. comfort measures. Will encourage rest and continue pitocin infusion. Objective Abnormal lab results 10/16/22 10/16/22 Range/Units 09:30 09:30 WBC 14.85 H (4.4-10.8) 10^3/uL Sodium 135 L (136-145) mmol/L Glucose 126 H (74-106) mg/dL Alkaline Phosphatase 153 H (46-116) U/L Albumin 3.0 L (3.4-5.0) g/dL Temp Pulse Resp BP Pulse Ox 98.2 F 97 H 20 134/78 100 10/16/22 12:59 10/16/22 21:37 10/16/22 12:59 10/16/22 19:21 10/16/22 15:31 Laboratory Results WBC 14.85 10^3/uL (4.4-10.8) H 10/16/22 09:30 RBC 4.24 10^6/uL (3.93-5.22) 10/16/22 09:30 Hgb 12.5 g/dL (11.2-15.7) 10/16/22 09:30 Hct 37.3 % (36.0-46.0) 10/16/22 09:30 MCV 88 fL (80-95) 10/16/22 09:30 MCH 29.5 pg (27.0-33.0) 10/16/22 09:30 MCHC 33.5 % (32.0-36.0) 10/16/22 09:30 RDW 12.8 % (11.7-14.6) 10/16/22 09:30 Plt Count 312 10^3/uL (130-400) 10/16/22 09:30 MPV 10.1 fL (8.0-11.0) 10/16/22 09:30 Sodium 135 mmol/L (136-145) L 10/16/22 09:30 Potassium 4.0 mmol/L (3.5-5.1) 10/16/22 09:30 Chloride 102 mmol/L (98-107) 10/16/22 09:30 Carbon Dioxide 22.0 mmol/L (21.0-32.0) 10/16/22 09:30 Anion Gap 11.0 mmol/L (3-11) 10/16/22 09:30 BUN 9 mg/dL (7-18) 10/16/22 09:30 Creatinine 0.8 mg/dL (0.55-1.02) 10/16/22 09:30 Est GFR (CKD-EPI 2020) 102.22 (mL/min/1.73m2) 10/16/22 09:30 Glucose 126 mg/dL (74-106) H 10/16/22 09:30 Hemoglobin A1c 5.9 % (<5.7) H 10/14/22 09:40 Calcium 9.2 mg/dL (8.5-10.1) 10/16/22 09:30 Total Bilirubin 0.3 mg/dL (0.2-1.0) 10/16/22 09:30 AST 15 U/L (15-37) 10/16/22 09:30 ALT 19 U/L (14-59) 10/16/22 09:30 Alkaline Phosphatase 153 U/L (46-116) H 10/16/22 09:30 Total Protein 7.5 g/dL (6.4-8.2) 10/16/22 09:30 Albumin 3.0 g/dL (3.4-5.0) L 10/16/22 09:30 Patient ABO/Rh B Positive 10/14/22 09:40 Antibody Screen NEGATIVE 10/14/22 09:40 Subjective Interval history since last seen: Sakshi has used the tub for comfort and shower. She is also using nitrous oxide. She requests an epidural and Stacey Bell CRNA was paged. Results Hemoglobin/Hematocrit: Hgb 12.5 g/dL (11.2-15.7) 10/16/22 09:30 Hct 37.3 % (36.0-46.0) 10/16/22 09:30 Abnormal Lab Findings: Abnormal Labs 10/14/22 10/14/22 10/14/22 09:40 09:40 09:40 WBC 11.28 H Sodium Glucose 134 H Hemoglobin A1c 5.9 H Alkaline Phosphatase 139 H Albumin 2.9 L 10/16/22 10/16/22 09:30 09:30 WBC 14.85 H Sodium 135 L Glucose 126 H Hemoglobin A1c Alkaline Phosphatase 153 H Albumin 3.0 L
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
[2022-10-16] MEDS: FentaNYL/ROPIvacaine 2 mcg/ml and 0.1% 200 ML CADD Cassette EP (22:43)
--- NOTE | 2022-10-16 22:52 | W.ANESNEU ---
Epidural/Spinal Catheter Date Performed: 10/16/22 Procedure Start: 22:26 Procedure Stop: 22:52 Requesting Provider: Marisela Garcia Procedure Location: Operating Room Reason Performed: Labor Epidural Standard Monitors Applied: Blood Pressure, SpO2 and See EMR for corresponding vital signs Patient Position: Sitting Sedation Given (Indicate Dose Given): No Sedation given Patient Mental Status: Awake Sterility: Hand Hygiene, Surgical Cap, Surgical Mask, Sterile Gloves and Chlorhexidine Procedure Location: L2-L3 Interspace Epidural Needle: Tuohy 18 Gauge Needle Length: 4 Inch Needle Approach: Midline Epidural Procedure: Skin Prepped, Sterile Drape Placed, 1% Lidocaine to skin and subcutaneous tissue with 25G needle, Tuohy Needle placed, MARÍA to Saline Used, Epidural Catheter Placed (Slight resistance met during catheter placement, quickly resolved), Negative Heme and Negative CSF Flow Catheter Placed?: Catheter Placed Test Dose (Indicate Dose Given): 3ml 1.5% Lidocaine with 1:200K Epinephrine Given Loss of Resistance Depth (cm): 7 Catheter depth at skin (cm): 14 Dressing: [place] Dressing Placed, Mastisol Used and Dressing reinforced with Tape Epidural Provider Bolus (Indicate Dose Given): Total bolus dose given in 3-5 ml divided doses and Total Ropivacaine 0.1% with Fentanyl 2mcg/ml Given from pump. (ml) Dose:: 3/5/5/5, see nursing documentation for timing Additives (Indicate Dose Given ): None Infusion Medication: Medication Infusion Began Medication Infusion: Ropivacaine 0.1% with Fentanyl 2mcg/ml Maintenance Infusion Rate (ml/hour): 10 PCEA Bolus Dose (ml): 5 Block Level: T10 Paresthesia: Left Paresthesia Duration: Transient Ultrasound: Not Used Number of Attempts (See previous attempts in note section): 1 Procedure Tolerated: No Complications and Patient tolerated well Procedure Outcome: Successful Procedure Comment:: Patient tolerated procedure well after some verbal redirection, at bedside and present for procedure. Catheter met slight resistance during placement. Epidural bolused in divided doses per note and patient continues to utilize nitrous for pressure relief. After adequate boluses, patient noted T10 block level and right leg heavier than left. Patient provided verbal education on bolus dosing and button available at bedside. Performed By: Stacey Bell
--- NOTE | 2022-10-16 23:28 | W.PM.OBNL1 ---
Date of service: 10/16/22 Time of Service: 23:29 Informed Consent Informed Consent: Induction of Labor and Risk,Benefits,Alternatives Discussed Pelvic Exam Dilation: 3 Effacement (%): 75 station: -2 Cervix Position: posterior Consistency: soft Contractions Monitor Mode: External Contraction Frequency(min): every 2-3 Contraction Duration(sec): 60 Intensity: Moderate/Strong Fetus A Monitor: External (US) Heart Rate Baseline: 140 Presentation: Vertex Variability: Moderate (6-25 BPM) Categories: Category I Accelerations: 15 X 15 Decelerations: None Recurrence: Episodic Assessment and Plan Assessment and plan (1) Encounter for induction of labor: Status: Acute Assessment and plan: Rest encouraged and will reassess in 2-[address] appropriate[address] Isaac is present on the unit and aware of patien's status. Objective Abnormal lab results 10/16/22 10/16/22 Range/Units 09:30 09:30 WBC 14.85 H (4.4-10.8) 10^3/uL Sodium 135 L (136-145) mmol/L Glucose 126 H (74-106) mg/dL Alkaline Phosphatase 153 H (46-116) U/L Albumin 3.0 L (3.4-5.0) g/dL Temp Pulse Resp BP Pulse Ox 98.2 F 74 20 161/78 H 98 10/16/22 12:59 10/16/22 23:25 10/16/22 12:59 10/16/22 23:24 10/16/22 22:32 Laboratory Results WBC 14.85 10^3/uL (4.4-10.8) H 10/16/22 09:30 RBC 4.24 10^6/uL (3.93-5.22) 10/16/22 09:30 Hgb 12.5 g/dL (11.2-15.7) 10/16/22 09:30 Hct 37.3 % (36.0-46.0) 10/16/22 09:30 MCV 88 fL (80-95) 10/16/22 09:30 MCH 29.5 pg (27.0-33.0) 10/16/22 09:30 MCHC 33.5 % (32.0-36.0) 10/16/22 09:30 RDW 12.8 % (11.7-14.6) 10/16/22 09:30 Plt Count 312 10^3/uL (130-400) 10/16/22 09:30 MPV 10.1 fL (8.0-11.0) 10/16/22 09:30 Sodium 135 mmol/L (136-145) L 10/16/22 09:30 Potassium 4.0 mmol/L (3.5-5.1) 10/16/22 09:30 Chloride 102 mmol/L (98-107) 10/16/22 09:30 Carbon Dioxide 22.0 mmol/L (21.0-32.0) 10/16/22 09:30 Anion Gap 11.0 mmol/L (3-11) 10/16/22 09:30 BUN 9 mg/dL (7-18) 10/16/22 09:30 Creatinine 0.8 mg/dL (0.55-1.02) 10/16/22 09:30 Est GFR (CKD-EPI 2020) 102.22 (mL/min/1.73m2) 10/16/22 09:30 Glucose 126 mg/dL (74-106) H 10/16/22 09:30 Hemoglobin A1c 5.9 % (<5.7) H 10/14/22 09:40 Calcium 9.2 mg/dL (8.5-10.1) 10/16/22 09:30 Total Bilirubin 0.3 mg/dL (0.2-1.0) 10/16/22 09:30 AST 15 U/L (15-37) 10/16/22 09:30 ALT 19 U/L (14-59) 10/16/22 09:30 Alkaline Phosphatase 153 U/L (46-116) H 10/16/22 09:30 Total Protein 7.5 g/dL (6.4-8.2) 10/16/22 09:30 Albumin 3.0 g/dL (3.4-5.0) L 10/16/22 09:30 Patient ABO/Rh B Positive 10/14/22 09:40 Antibody Screen NEGATIVE 10/14/22 09:40 Subjective Interval history since last seen: Epidural placed by Sakshi Lebron received fair effect but is still experiencing a lot of pressure and discomfort with cervical exam. She was encouraged to lie on left side and try to rest. She is using nitrous oxide. Pitocin was turned doen from 30 - 20 when she was in the tub due to frequent contractions. It is now infusing at 20 mu/min Results Hemoglobin/Hematocrit: Hgb 12.5 g/dL (11.2-15.7) 10/16/22 09:30 Hct 37.3 % (36.0-46.0) 10/16/22 09:30 Abnormal Lab Findings: Abnormal Labs 10/14/22 10/14/22 10/14/22 09:40 09:40 09:40 WBC 11.28 H Sodium Glucose 134 H Hemoglobin A1c 5.9 H Alkaline Phosphatase 139 H Albumin 2.9 L 10/16/22 10/16/22 09:30 09:30 WBC 14.85 H Sodium 135 L Glucose 126 H Hemoglobin A1c Alkaline Phosphatase 153 H Albumin 3.0 L
[2022-10-17] VITALS (87 sets, daily range): BP systolic 105–160; BP diastolic 48–82; PULSE 0–99; RESP 17–20; TEMP 36.4–36.8; O2SAT 96–100
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
--- NOTE | 2022-10-17 02:24 | W.PM.OBNL1 ---
Date of service: 10/17/22 Time of Service: 02:24 Informed Consent Informed Consent: Induction of Labor and Risk,Benefits,Alternatives Discussed Pelvic Exam Dilation: 4 Effacement (%): 75 station: -2 Consistency: soft (edematous) Comments: caput palpable. No descent noted. Contractions Monitor Mode: External Contraction Frequency(min): every 2-3 Contraction Duration(sec): 60 Intensity: Moderate/Strong Fetus A Monitor: External (US) Heart Rate Baseline: 130 Variability: Moderate (6-25 BPM) Categories: Category I Accelerations: 15 X 15 Decelerations: None Assessment and Plan Assessment and plan (1) Arrested active phase of labor: Status: Acute Assessment and plan: I discussed placement of IUPC and measuring contraction strength for 2 hours. Sakshi declines and due to fatigue and discomfort, she and her partner Gavin wish to proceed with . I notified Dr Isaac who came to speak with Sakshi and Gavin (2) Failed induction of labor: Status: Acute Assessment and plan: Will proceed with section. Objective Abnormal lab results 10/16/22 10/16/22 Range/Units 09:30 09:30 WBC 14.85 H (4.4-10.8) 10^3/uL Sodium 135 L (136-145) mmol/L Glucose 126 H (74-106) mg/dL Alkaline Phosphatase 153 H (46-116) U/L Albumin 3.0 L (3.4-5.0) g/dL Temp Pulse Resp BP Pulse Ox 98.2 F 75 17 135/82 100 10/16/22 12:59 10/17/22 02:21 10/17/22 00:52 10/17/22 01:50 10/17/22 00:52 Laboratory Results WBC 14.85 10^3/uL (4.4-10.8) H 10/16/22 09:30 RBC 4.24 10^6/uL (3.93-5.22) 10/16/22 09:30 Hgb 12.5 g/dL (11.2-15.7) 10/16/22 09:30 Hct 37.3 % (36.0-46.0) 10/16/22 09:30 MCV 88 fL (80-95) 10/16/22 09:30 MCH 29.5 pg (27.0-33.0) 10/16/22 09:30 MCHC 33.5 % (32.0-36.0) 10/16/22 09:30 RDW 12.8 % (11.7-14.6) 10/16/22 09:30 Plt Count 312 10^3/uL (130-400) 10/16/22 09:30 MPV 10.1 fL (8.0-11.0) 10/16/22 09:30 Sodium 135 mmol/L (136-145) L 10/16/22 09:30 Potassium 4.0 mmol/L (3.5-5.1) 10/16/22 09:30 Chloride 102 mmol/L (98-107) 10/16/22 09:30 Carbon Dioxide 22.0 mmol/L (21.0-32.0) 10/16/22 09:30 Anion Gap 11.0 mmol/L (3-11) 10/16/22 09:30 BUN 9 mg/dL (7-18) 10/16/22 09:30 Creatinine 0.8 mg/dL (0.55-1.02) 10/16/22 09:30 Est GFR (CKD-EPI 2020) 102.22 (mL/min/1.73m2) 10/16/22 09:30 Glucose 126 mg/dL (74-106) H 10/16/22 09:30 Hemoglobin A1c 5.9 % (<5.7) H 10/14/22 09:40 Calcium 9.2 mg/dL (8.5-10.1) 10/16/22 09:30 Total Bilirubin 0.3 mg/dL (0.2-1.0) 10/16/22 09:30 AST 15 U/L (15-37) 10/16/22 09:30 ALT 19 U/L (14-59) 10/16/22 09:30 Alkaline Phosphatase 153 U/L (46-116) H 10/16/22 09:30 Total Protein 7.5 g/dL (6.4-8.2) 10/16/22 09:30 Albumin 3.0 g/dL (3.4-5.0) L 10/16/22 09:30 Patient ABO/Rh B Positive 10/14/22 09:40 Antibody Screen NEGATIVE 10/14/22 09:40 Subjective Interval history since last seen: Sakshi has had poor pain relief from epidural and has been unable to rest. She describes pain every where in her body. She has been using nitrous oxide with every contraction. She voided 800 cc on a bedpan and then was incontinent when she turned in bed. She voided 300 cc on a bedpan again and a nam was placed for 100 cc clear urine. Results Hemoglobin/Hematocrit: Hgb 12.5 g/dL (11.2-15.7) 10/16/22 09:30 Hct 37.3 % (36.0-46.0) 10/16/22 09:30 Abnormal Lab Findings: Abnormal Labs 10/14/22 10/14/22 10/14/22 09:40 09:40 09:40 WBC 11.28 H Sodium Glucose 134 H Hemoglobin A1c 5.9 H Alkaline Phosphatase 139 H Albumin 2.9 L 10/16/22 10/16/22 09:30 09:30 WBC 14.85 H Sodium 135 L Glucose 126 H Hemoglobin A1c Alkaline Phosphatase 153 H Albumin 3.0 L
[2022-10-17] MEDS: Azithromycin 500 MG VIAL (02:40)
[2022-10-17] MEDS: Normal Saline 250 ML (02:40)
[2022-10-17] MEDS: ceFAZolin 2 GM/50 ML BAG 100 GM (03:24)
[2022-10-17] MEDS: Lactated Ringers 1,000 ML 80 ML IV (03:49)
[2022-10-17] MEDS: Bupivacaine 0.25% Pres-Free 30 ML VIAL (03:50)
--- NOTE | 2022-10-17 03:52 | PLAC_PTH ---
PATIENT: Sakshi Wilcox LOC: OBS U#:[id number] AGE/SX: 27/F ROOM: OBS.301 RE10/14/[address]: Christal Mcnally CNM : 1995 BED: A DIS: 10/19/2022 SPEC #: [id number] RECD: 10/19/22 13:05 STATUS: GALE REQ #: [id number] VERONA: 10/17/22 03:[address]: Bettie Isaac DEPT: Surgical Specimen RECD BY: Mai Ceja ENTERED: 10/19/22 13:06 SP TYPE: PLAC OTHR DR: Christal Mcnally CNM Tissues: 1 - PLACENTA (3RD TRIMESTER) Procedures: GROSS AND MICRO LEVEL 5 Comments: [id number]
--- NOTE | 2022-10-17 04:40 | W.PM.OBCSECT ---
Date of service: 10/17/22 Time of Service: 04:40 Operative Note Operative Note Delivery Method: Unscheduled STAT: No and Primary [id number] Weeks: Yes DATE OF PROCEDURE: 10/17/22 PRE-OP DIAGNOSES: at 39 weeks and 6 days, preeclampsia, failed induction Same with macrosomia PROCEDURE: Primary low-transverse section SURGEON: Bettie Isaac Mdm Developer: Marisela Garcia Anesthesia: local and spinal Estimated blood loss (mL): 600 Pathology: other (Placenta for examination) Complications: None Patient was transported to: floor Patient's condition: stable Indications: Failed induction, arrest of descent Findings: Delivery of a viable male infant with Apgars 8 and 9. Normal-appearing tubes, ovaries, uterus. Procedure Description: After obstetric consultation was performed, full informed consent was obtained for primary section for labor arrest after day #4 of an attempted labor induction. She arrested her labor at 4 cm with the vertex high out of the pelvis, and significant caput noted. Patient was taken the operating suite with [address] due to her increased risk of hemorrhage. She was placed in the seated position and her epidural catheter which had been previously inserted was removed. Spinal anesthesia was administered, tested, and found to be adequate. She was placed in the dorsal supine position with a leftward tilt and prepped and draped in the usual sterile fashion. Vaginal preparation was performed. Exam with anesthesia was performed noting the vertex high out of the pelvis, cervix that was 4 cm dilated and 50% effaced and significant caput was noted. Lane catheter had been previously inserted for continuous bladder drainage. DVT prophylaxis was via pneumatic compression stockings. Patient received 2 g of Ancef and 500 mg of Zithromax prior to skin incision.. Half percent Marcaine was used to infiltrate the area of the Pfannenstiel skin incision. A Pfannenstiel skin incision was made in the usual fashion and carried down to the underlying fascia the fascia was then incised and fascial incision extended laterally. The rectus muscles were identified and split in the midline. The peritoneum was identified tented up and entered sharply and the peritoneal incision was extended superiorly and inferiorly. The bladder blade was then inserted and the vesicouterine peritoneum identified tented up and a bladder flap created. The bladder blade was then reinserted. A low transverse uterine incision was made and extended bluntly laterally. The vertex was delivered atraumatically through the uterine incision. There was no evidence of nuchal cord. Shoulders followed with ease. Three-vessel cord was noted clamped x2 and cut and the infant was handed off to the waiting care team assistant. At this point segment of cord for cord gases were obtained, cord blood sample was obtained, and the placenta was manually expressed from the uterus. The uterus was then exteriorized and cleared of all clot and debris. The uterine incision was closed in a 2 layer closure with 0 Monocryl suture first layer being running locked, second being imbricating. Uterine incision was inspected and noted to be hemostatic. Fallopian tubes and ovaries were identified and normal. There was no evidence of hematoma. The uterus was then returned to the abdomen and again the uterine incision was inspected and noted to be hemostatic. The fascial incision was then closed using 0 Vicryl suture in a running fashion. Subcutaneous tissue irrigated with copious amounts of normal saline and the subcu space was closed with 3-0 Vicryl suture. Skin edge was then reapproximated with 4-0 undyed Monocryl in a subcuticular fashion. Steri-Strips and sterile dressing were placed. Patient was taken to the center with a Lane catheter draining clear yellow urine and a uterus that was 2 cm below the umbilicus and firm. EBL: 600 mL Complications: None apparent Findings: Delivery of viable male infant with Apgars of 8 and 9. Normal-appearing tubes, ovaries, uterus Fluids: 700 mL of crystalloid per anesthesia Pathology: Placenta for examination. Infant Gender: Male
[2022-10-17] MEDS: Naloxone 0.4 MG/ML VIAL IVP (05:39)
[2022-10-17] MEDS: Ketorolac 30 MG/ML VIAL 15 MG IVP (10:34)
[2022-10-17] MEDS: Ibuprofen 600 MG TAB PO ×2 (16:46→22:34)
[2022-10-17] MEDS: Acetaminophen 325 MG TAB 650 MG PO ×2 (16:46→22:33)
--- NOTE | 2022-10-17 19:40 | W.ANESPOSTOP ---
Postoperative Evaluation Date, Time and Location Date Performed: 10/17/22 Time Performed: 19:40 Patient Location: Obstetrics Vital Signs Most Recent Imported Vital Signs: Most Recent Vital Signs Temp Pulse Resp BP Pulse Ox 36.8 C 69 20 108/66 98 10/17/22 15:56 10/17/22 15:56 10/17/22 15:56 10/17/22 15:56 10/17/22 15:56 Pain Score Most Recent Pain Score: Most Recent Pain Score Pain Level [Lower Abdomen] 1 10/17/22 15:56 Pain Level 0 10/14/22 09:31 Assessment Mental Status: Awake (Alert & Oriented to Patient Baseline) Airway and Respiratory Function: Patent airway with normal (patient baseline) respiratory exam Cardiovascular Function: Hemodynamically Stable Hydration Status: Adequately Hydrated Nausea & Vomiting: No Nausea or Vomiting Pain: Pain is tolerable per patient Peripheral Nerve Block: Patient did not receive a nerve block
[2022-10-18 04:15] VITALS: BP 117/77; PULSE 75; RESP 17; TEMP 36.7; O2SAT 100
[2022-10-18] MEDS: Docusate Sodium 100 MG CAP PO (04:16)
[2022-10-18] MEDS: Acetaminophen 325 MG TAB 650 MG PO ×4 (04:16→22:11)
[2022-10-18] MEDS: Ibuprofen 600 MG TAB PO ×4 (04:16→22:10)
[2022-10-18 06:15] LABS: Abs Immature Grans 0.11 10^3/uL (0.0-0.06); Absolute Basophil Count 0.05 10^3/uL (0.0-0.2); Absolute Monocyte Count 1.21 10^3/uL (0.1-0.8); Absolute Neutrophil Count 8.58 10^3/uL (1.2-6.7); Basophils % 0.4; Eosinophils % 2.5; HCT 28.8 % (36.0-46.0); HGB 9.2 g/dL (11.2-15.7); Immature Grans % 0.8; Lymphocytes % 21.2; MCHC 31.9 % (32.0-36.0); MCV 91 fL (80-95); Monocytes % 9.3; Neutrophils % 65.8; Platelet Count 222 10^3/uL (130-400); RBC 3.17 10^6/uL (3.93-5.22); RDW-SD 42.7 fL; WBC 13.04 10^3/uL (4.4-10.8)
[2022-10-18 06:19] LABS: Absolute Eosinophil Count 0.33 10^3/uL (0.0-0.7); Absolute Lymphocyte Count 2.76 10^3/uL (1.2-3.4)
--- NOTE | 2022-10-18 06:49 | W.PM.OBPNV1 ---
Date of service: 10/18/22 Time of Service: 06:49 Assessment and Plan Assessment and plan (1) Status post primary low transverse section: Status: Acute Assessment and plan: day 1 status post primary low-transverse section for labor arrest, macrosomia, and failed induction. Routine and postoperative care. Anticipate discharge home in 24 to 48 hours. All questions answered. Subjective Subjective Interval history: Patient seen and examined day #1 doing well. Hemoglobin appropriate at 9.2 with stable vital signs. baby status: Doing well, Nursing well, Rooming in and Strong Bonding Observed Exam Physical Exam Vital signs: Temp Pulse Resp BP Pulse Ox 98.1 F 75 17 117/77 100 10/18/22 04:15 10/18/22 04:15 10/18/22 04:15 10/18/22 04:15 10/18/22 04:15 Vital Signs Reviewed: Yes Constitutional Constitutional: no acute distress HEENT Exam HEENT Exam: Normal Respiratory Exam Respiratory Exam: Normal Cardiovascular Exam Cardiovascular Exam: Normal Abdominal Exam Comments: Soft, active bowel sounds. Incision dressed Fundal Exam Comment: Firm, below the umbilicus Extremities Exam Extremity Exam: Edema (1+, bilateral); negative Calf Tenderness Skin Exam Skin Exam: Normal Psychiatric Exam Psychiatric Exam: Normal Results Hemoglobin/Hematocrit: Hgb 9.2 g/dL (11.2-15.7) L D 10/18/22 06:05 Hct 28.8 % (36.0-46.0) L 10/18/22 06:05 Abnormal Lab Findings: Abnormal Labs 10/14/22 10/14/22 10/14/22 09:40 09:40 09:40 WBC 11.28 H RBC Hgb Hct MCHC Absolute Neutrophils Absolute Monocytes Sodium Glucose 134 H Hemoglobin A1c 5.9 H Alkaline Phosphatase 139 H Albumin 2.9 L 10/16/22 10/16/22 10/18/22 09:30 09:30 06:05 WBC 14.85 H 13.04 H RBC 3.17 L Hgb 9.2 L D Hct 28.8 L MCHC 31.9 L Absolute Neutrophils 8.58 H Absolute Monocytes 1.21 H Sodium 135 L Glucose 126 H Hemoglobin A1c Alkaline Phosphatase 153 H Albumin 3.0 L
[2022-10-18 08:00] VITALS: BP 116/74; PULSE 90; RESP 18; TEMP 36.8; O2SAT 98
[2022-10-18 12:17] VITALS: BP 135/80; PULSE 85; RESP 18; TEMP 36.8; O2SAT 97
[2022-10-18 16:06] VITALS: BP 114/73; PULSE 94; RESP 20; TEMP 36.5; O2SAT 97
[2022-10-18 20:25] VITALS: BP 101/54; PULSE 95; RESP 18; TEMP 36.8
[2022-10-19] MEDS: Ibuprofen 600 MG TAB PO (04:03)
[2022-10-19] MEDS: Acetaminophen 325 MG TAB 650 MG PO (04:04)
[2022-10-19 07:38] VITALS: BP 133/82; PULSE 95; RESP 18; TEMP 36.8; O2SAT 97
--- NOTE | 2022-10-19 08:25 | W.PM.OBPNV1 ---
Date of service: 10/19/22 Time of Service: 08:25 Assessment and Plan Assessment and plan (1) Status post primary low transverse section: Status: Acute Assessment and plan: Patient had labor induction for preeclampsia at term. Blood pressures remain stable. She is having a routine postoperative course. She will be discharged home today with follow-up in the office in 10 days and 6 weeks. All questions were answered. (2) Arrested active phase of labor: Status: Acute (3) Failed induction of labor: Status: Acute Subjective Subjective Narrative: Patient seen and examined this morning. Desires discharge home today. She is ambulating, tolerating regular diet and oral pain medication with stable vital signs. She is breast-feeding without difficulty. She will be seen back in the office at the appropriate intervals of 2 and 6 weeks. Her abdominal dressing was removed today. Exam Physical Exam Vital signs: Temp Pulse Resp BP Pulse Ox 98.2 F 95 H 18 133/82 97 10/19/22 07:38 10/19/22 07:38 10/19/22 07:38 10/19/22 07:38 10/19/22 07:38 Vital Signs Reviewed: Yes Constitutional Constitutional: no acute distress HEENT Exam HEENT Exam: Normal Neck Exam Neck Exam: Normal Respiratory Exam Respiratory Exam: Normal Cardiovascular Exam Cardiovascular Exam: Normal Abdominal Exam Comments: Abdomen is soft and nontender. There is no distention. Her incision is clean, dry, intact. There is no surrounding erythema or ecchymosis. Wound care was discussed. Fundal Exam Fundus: Below Umbilicus and Firm Extremities Exam Extremity Exam: Normal and Edema (2+ bilateral lower extremity edema. No symptomatology that would suggest clot.); negative Calf Tenderness Neurological Exam Neurological Exam: Normal Psychiatric Exam Psychiatric Exam: Normal Results Hemoglobin/Hematocrit: Hgb 9.2 g/dL (11.2-15.7) L D 10/18/22 06:05 Hct 28.8 % (36.0-46.0) L 10/18/22 06:05 Abnormal Lab Findings: Abnormal Labs 10/14/22 10/14/22 10/14/22 09:40 09:40 09:40 WBC 11.28 H RBC Hgb Hct MCHC Absolute Neutrophils Absolute Monocytes Sodium Glucose 134 H Hemoglobin A1c 5.9 H Alkaline Phosphatase 139 H Albumin 2.9 L 10/16/22 10/16/22 10/18/22 09:30 09:30 06:05 WBC 14.85 H 13.04 H RBC 3.17 L Hgb 9.2 L D Hct 28.8 L MCHC 31.9 L Absolute Neutrophils 8.58 H Absolute Monocytes 1.21 H Sodium 135 L Glucose 126 H Hemoglobin A1c Alkaline Phosphatase 153 H Albumin 3.0 L
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
== END 2022-10-19 09:20 | disposition home or self-care (01) | DRG 788 ==
PROVIDERS: Advanced Practice Midwife; Obstetrics & Gynecology; Admitting Provider Advanced Practice Midwife; Visit Provider Advanced Practice Midwife
PROC: 10D00Z1 Extraction of Products of Conception, Low, Open Approach (ICD-10-PCS; CPT 59514; principal; 2022-10-17 02:45)
DX: O14.04 Mild to moderate pre-eclampsia, complicating childbirth (principal); O36.63X0 Maternal care for excessive fetal growth, third trimester, not applicable or unspecified; O12.24 Gestational edema with proteinuria, complicating childbirth; O61.9 Failed induction of labor, unspecified; Z37.0 Single live birth; Z3A.40 40 weeks gestation of pregnancy; O62.1 Secondary uterine inertia; Z62.810 Personal history of physical and sexual abuse in childhood
CPT/HCPCS: 59200; 59514; 36415; 80053; 85027; 86850; 86900; 86901; 83036; 85025; 88307; J0131; J0456; J0690; J1100; J1885; J2310; J2371; J2405; J3010; J3490

== ENCOUNTER 2022-12-08 16:23 | Outpatient (REF) | payer BC, SELFPAY ==
[2022-12-10 13:03] LABS: Chlamydia Result Negative (Negative); GC Result Negative (Negative)
== END 2022-12-08 16:24 | disposition home or self-care (01) ==
LOC: LBN 16:23
PROVIDERS: Visit Provider Obstetrics & Gynecology
DX: Z11.3 Encounter for screening for infections with a predominantly sexual mode of transmission (principal)
CPT/HCPCS: 87491; 87591

== ENCOUNTER 2023-01-01 14:19 | Outpatient (REF) | payer BC, SELFPAY ==
[2023-01-01 18:25] LABS: Bilirubin Negative (Negative); Blood Moderate (Negative); Clarity Sl Cloudy (Clear); Glucose 100 mg/dL (Negative); Ketones Negative (Negative); Leukocyte Esterase Trace (Negative); Nitrite Positive (Negative); pH 5.5 (5-8)
[2023-01-01 18:38] LABS: Bacteria Many HPF (Negative); C & S Indicated? Yes; Crystals Negative HPF (Negative); Epithelial Cells Rare HPF (Negative); Mucus Negative (Negative)
== END 2023-01-01 14:20 | disposition home or self-care (01) ==
LOC: LBN 14:19
PROVIDERS: PCP Nurse Practitioner; Visit Provider Physician Assistant
DX: N39.0 Urinary tract infection, site not specified (principal); B96.29 Other Escherichia coli [E. coli] as the cause of diseases classified elsewhere
CPT/HCPCS: 87077; 81003; 81015; 87086; 87186

== ENCOUNTER 2024-02-01 04:43 | Outpatient (CLI) | payer BC, SELFPAY ==
--- NOTE | 2024-02-01 11:44 | W.NUTRFU ---
Date of service: 02/01/24 Time of Service: 11:00 Nutrition Note NOTE: Sakshi referred for nutrition visit for abnormal weight gain and dietary counseling. Reynold states she is ~8weeks into second . Was close to gestational diabetes during her 1st and wants to avoid high glucose and excessive weight gain during this . Reviewed with her that energy needs don't increase until 2nd trimester and to consider habits over tracking calories. We reviewed total weight gain of 0-10 pounds to be a good goal for this as her starting BMI is >35. Encouraged activity/exercise and good sleep hygiene. Also reviewed goal of 1800 kcals most days would be a good amount to shoot for -increase to ~2000kcals per day later stages of gestation. Taking and tolerating PNV's. We reviewed carbohydrates in the forms of sugars, fiber and starches and prioritized high fiber diet (goal of at least 25g per day) along with starches from healthy sources like sweet potato, brown rice, whole oats and other grains/starchy veggies but encouraged to consider 200g per day a good goal for total carbs. Highlighted fiber component and limiting added sugars to <30g most days. Reviewed serving sizes for starches and how quickly they add up with 15g servings. Highlighted lean protein and trying to get ~100-120g protein most days - aim for half of this at least to come from plant sources like nuts/seeds, whole oats, lentils, beans, whole soy. We discussed balancing plate with 1 CHO at snacks and 2-3 at meals and filling in plate with non-carb foods (protein, nonstarchy veggies) for satiety and health beneifits. She took my card to contact with any questions or if she's like help with reviewing her intake if she's like to record it and share it at a follow up visit or email [email or web address]. Time Spent in Nutritional Counseling and Treatment: 25 min
== END 2024-02-01 04:44 | disposition home or self-care (01) ==
PROVIDERS: PCP Nurse Practitioner; Visit Provider Dietitian, Registered
DX: Z71.3 Dietary counseling and surveillance (principal)
CPT/HCPCS: 00123; 97802

== ENCOUNTER 2024-03-07 01:59 | Outpatient (CLI) | payer BC, SELFPAY ==
[2024-03-07 12:24] LABS: Abs Immature Grans 0.03 10^3/uL (0.0-0.06); Absolute Basophil Count 0.05 10^3/uL (0.0-0.2); Absolute Eosinophil Count 0.62 10^3/uL (0.0-0.7); Absolute Lymphocyte Count 2.51 10^3/uL (1.2-3.4); Absolute Monocyte Count 0.68 10^3/uL (0.1-0.8); Absolute Neutrophil Count 5.69 10^3/uL (1.2-6.7); Basophils % 0.5 %; Eosinophils % 6.5 %; HCT 39.4 % (36.0-46.0); HGB 13.2 g/dL (11.2-15.7); Immature Grans % 0.3 %; Lymphocytes % 26.2 %; MCHC 33.5 % (32.0-36.0); MCV 90 fL (80-95); MPV 9.2 fL (8.0-11.0); Monocytes % 7.1 %; Neutrophils % 59.4 %; Platelet Count 311 10^3/uL (130-400); RDW 11.9 % (11.7-14.6); RDW-SD 39.1 fL; WBC 9.58 10^3/uL (4.4-10.8)
[2024-03-07 12:46] LABS: Glucose,1 Hr (Glucola) 102 mg/dL (80-140)
[2024-03-07 23:16] LABS: Hepatitis B Surface Ag Negative (Negative)
[2024-03-07 23:44] LABS: Hepatitis C Ab w Rflx HCV PCR Negative (Negative)
[2024-03-08 00:03] LABS: HIV-1/2 Ag & Ab Screen Negative (Negative)
[2024-03-08 11:01] LABS: Rubella IgG Ab (UVM) Positive (See Note); Varicella IgG Antibody Positive (See Note)
[2024-03-09 14:59] LABS: Syphilis IgG w/Reflex Nonreactive (Nonreactive)
== END 2024-03-07 02:00 | disposition home or self-care (01) ==
LOC: LBO 01:59
PROVIDERS: PCP Nurse Practitioner; Visit Provider Advanced Practice Midwife
DX: Z34.91 Encounter for supervision of normal pregnancy, unspecified, first trimester (principal)
CPT/HCPCS: 36415; 82950; 86787; 86803; 86850; 86900; 86901; 87340; 87389; 85025; 86762; 86780

== ENCOUNTER 2024-03-07 11:05 | Outpatient (REF) | payer BC, SELFPAY | END 2024-03-07 11:06 | disposition home or self-care (01) | LOC: LBN 11:05 | PROVIDERS: PCP Nurse Practitioner; Visit Provider Advanced Practice Midwife | DX: Z34.91 Encounter for supervision of normal pregnancy, unspecified, first trimester (principal) | CPT/HCPCS: 87086 ==

== ENCOUNTER 2024-06-26 03:47 | Outpatient (CLI) | payer BC, SELFPAY ==
[2024-06-26 09:48] LABS: Abs Immature Grans 0.07 10^3/uL (0.0-0.06); Absolute Basophil Count 0.03 10^3/uL (0.0-0.2); Absolute Eosinophil Count 0.44 10^3/uL (0.0-0.7); Absolute Lymphocyte Count 1.97 10^3/uL (1.2-3.4); Absolute Monocyte Count 0.96 10^3/uL (0.1-0.8); Absolute Neutrophil Count 8.11 10^3/uL (1.2-6.7); Basophils % 0.3 %; Eosinophils % 3.8 %; HCT 37.2 % (36.0-46.0); HGB 12.6 g/dL (11.2-15.7); Immature Grans % 0.6 %; MCH 30.2 pg (27.0-33.0); MCHC 33.9 % (32.0-36.0); MCV 89 fL (80-95); MPV 9.6 fL (8.0-11.0); Monocytes % 8.3 %; Platelet Count 286 10^3/uL (130-400); RBC 4.17 10^6/uL (3.93-5.22); RDW 12.1 % (11.7-14.6); WBC 11.59 10^3/uL (4.4-10.8)
[2024-06-26 10:04] LABS: Glucose,1 Hr (Glucola) 124 mg/dL (80-140)
== END 2024-06-26 03:48 | disposition home or self-care (01) ==
LOC: LBO 03:47
PROVIDERS: PCP Nurse Practitioner; Visit Provider Obstetrics & Gynecology
DX: Z34.92 Encounter for supervision of normal pregnancy, unspecified, second trimester (principal)
CPT/HCPCS: 36415; 82950; 86850; 86900; 86901; 85025

== ENCOUNTER 2024-07-23 01:51 | Outpatient (CLI) | payer BC, SELFPAY ==
--- NOTE | 2024-07-23 06:45 | DI.US_ITS ---
Exam(s) US OB KEITH WEIGHT EXAM: US OB KEITH WEIGHT CLINICAL HISTORY: 32wk growth US,marginal ins umbilical cord,O43.199. TECHNIQUE: Transabdominal obstetrical ultrasound was performed. COMPARISON: US US OB 2-3 TRIMESTER from 05/04/2024 FINDINGS: There is a single viable intrauterine gestation with cardiac activity identified-143 bpm The fetus is presently in breech position with spine pointing anterior left. Amniotic fluid: There is a normal amount of amniotic fluid with an KEITH of 14.3cm. Placental location: The placenta is posterior grade 2,with no evidence of placenta previa. Dating parameters place this at approximately 33 weeks and 6 days gestational age, implying LORENZO of 09/04/2024. BPD measures 32 weeks and 4 days HC measures 35 weeks and 3 days AC measures 34 weeks and 0 days FL measures 33 weeks and 2 days Estimated weight is 2278 gm-5 pound 0 ounces Fetus is at the 85th percentile on the Hadlock scale. IMPRESSION:: Viable 3rd trimester gestation, as described above. DATA REPOSITORY:
== END 2024-07-23 02:11 ==
LOC: DI 01:51
PROVIDERS: PCP Nurse Practitioner; Visit Provider Advanced Practice Midwife
DX: O43.193 Other malformation of placenta, third trimester (principal); Z3A.35 35 weeks gestation of pregnancy
CPT/HCPCS: 76816

== ENCOUNTER 2024-08-14 12:16 | Outpatient (CLI) | payer BC, SELFPAY ==
[2024-08-14 12:43] VITALS: BP 138/68; PULSE 67; TEMP 36.5
[2024-08-14 12:45] VITALS: BP 138/68; PULSE 67
[2024-08-14 12:47] LABS: Abs Immature Grans 0.10 10^3/uL (0.0-0.06); HCT 37.8 % (36.0-46.0); HGB 12.5 g/dL (11.2-15.7); Immature Grans % 0.9 %; MCH 29.8 pg (27.0-33.0); MCHC 33.1 % (32.0-36.0); MCV 90 fL (80-95); MPV 9.9 fL (8.0-11.0); Platelet Count 282 10^3/uL (130-400); RBC 4.19 10^6/uL (3.93-5.22); RDW 12.3 % (11.7-14.6); RDW-SD 39.8 fL; WBC 11.59 10^3/uL (4.4-10.8)
[2024-08-14 13:13] LABS: ALT 19 U/L (14-59); AST 14 U/L (15-37); Albumin 3.1 g/dL (3.4-5.0); Alkaline Phosphatase 119 U/L (46-116); Anion Gap 12.6 mmol/L (3-11); BUN 10 mg/dL (7-18); Bilirubin, Total 0.3 mg/dL (0.2-1.0); CO2 22.4 mmol/L (21.0-32.0); Calcium 9.4 mg/dL (8.5-10.1); Chloride 101 mmol/L (98-107); Estimated GFR 135.62 (mL/min/1.73m2); Glucose 82 mg/dL (74-106); Potassium 4.0 mmol/L (3.5-5.1); Sodium 136 mmol/L (136-145); Total Protein 7.4 g/dL (6.4-8.2)
[2024-08-14 13:22] LABS: PROTEIN 6.0 mg/dL; Prot/Crea Ur Ratio 0.16
--- NOTE | 2024-08-14 13:30 | PDOC.NST_ITS ---
Date of service: 08/14/24 Time of Service: 13:31 NST Evaluation Reason for NST Reasons for Nonstress Test: GESTATIONAL HYPERTENSION Gestational Age Gestational Age in Weeks and Days: 35 Weeks and 3Days Test and Monitor Explained Test/Monitor Explained: Test Explained Vital Signs Blood Pressure: 138/68 Pulse: 67 Temperature: 97.7 F NST Information Date on Monitor: 08/14/24 Time on Monitor: 12:30 Date off Monitor: 08/14/24 Time off Monitor: 13:00 Total Time on Monitor: 30 NST Interventions: PO Hydration NST Evaluation Patient States Movement: Present Variability: Moderate 6-25 bpm Accelerations: 15x15 Decelerations: None NST Results: Reactive Note Ultrasound Done: N/A. NST Note Note: Patient seen for surveillance due to elevated blood pressure. Blood pressures improved on the floor at 130s over 80s. Laboratory studies are no rmal. Urine protein creatinine ratio was normal. She has a category 1, reactive NST. She did self collect her group B strep and she will see us in the office weekly along with twice-weekly nonstress testing. All questions answered NST Reviewed and Verified by: Bettie Isaac
[2024-08-14 13:32] VITALS: BP 138/68; PULSE 67; TEMP 36.5
== END 2024-08-14 13:42 | disposition other institution (70) ==
LOC: BCD 12:20 → OBS 12:24
PROVIDERS: PCP Nurse Practitioner; Visit Provider Obstetrics & Gynecology
DX: O13.3 Gestational [pregnancy-induced] hypertension without significant proteinuria, third trimester (principal); Z3A.35 35 weeks gestation of pregnancy
CPT/HCPCS: 36415; 80053; 59025; 82565; 84156; 85025; 87081

== ENCOUNTER 2024-08-20 07:28 | Outpatient (CLI) | payer BC, SELFPAY ==
[2024-08-20 08:14] VITALS: BP 134/67; PULSE 69; TEMP 36.8
[2024-08-20 08:40] VITALS: BP 134/67; PULSE 69
--- NOTE | 2024-08-20 18:00 | W.OBNST ---
Date of service: 08/20/24 Time of Service: 18:00 NST Evaluation Reason for NST Reasons for Nonstress Test: GESTATIONAL HYPERTENSION Gestational Age Gestational Age in Weeks and Days: 37 Weeks and 6Days Test and Monitor Explained Test/Monitor Explained: Test Explained, Monitor Explained and Patient Verbalized Understanding Vital Signs Blood Pressure: 134/67 Pulse: 69 Temperature: 98.2 F Urine Results Urine Protein: Positive Urine Ketones: Negative Urine Glucose: Negative Urine Blood: Positive NST Information Date on Monitor: 08/20/24 Time on Monitor: 08:20 Date off Monitor: 08/20/24 Time off Monitor: 09:03 Total Time on Monitor: 43 NST Interventions: PO Hydration NST Evaluation Patient States Movement: Present FHR Baseline: 135 Variability: Moderate 6-25 bpm Accelerations: 15x15 Decelerations: None NST Results: Reactive Note Ultrasound Done: N/A. NST Note NST Reviewed and Verified by: Dilcia López
--- NOTE | 2024-09-18 14:39 | W.OBNST ---
Date of service: 08/20/24 Time of Service: 17:00 NST Evaluation Reason for NST Reasons for Nonstress Test: GESTATIONAL HYPERTENSION Gestational Age Gestational Age in Weeks and Days: 37 Weeks and 6Days Test and Monitor Explained Test/Monitor Explained: Test Explained, Monitor Explained and Patient Verbalized Understanding Vital Signs Blood Pressure: 134/67 Pulse: 69 Temperature: 98.2 F Urine Results Urine Protein: Positive Urine Ketones: Negative Urine Glucose: Negative Urine Blood: Positive NST Information Date on Monitor: 08/20/24 Time on Monitor: 08:20 Date off Monitor: 08/20/24 Time off Monitor: 09:03 Total Time on Monitor: 43 NST Interventions: PO Hydration NST Evaluation Patient States Movement: Present FHR Baseline: 135 Variability: Moderate 6-25 bpm Accelerations: 15x15 Decelerations: None NST Results: Reactive Note Ultrasound Done: N/A. NST Note NST Reviewed and Verified by: Dilcia López
[2024-09-18 14:40] VITALS: BP 134/67; PULSE 69; TEMP 36.8
[2024-10-13 15:58] VITALS: BP 134/67; PULSE 69; TEMP 36.8
== END 2024-08-20 09:27 | disposition other institution (70) ==
LOC: BCD 07:34 → OBS 08:12
PROVIDERS: PCP Nurse Practitioner; Visit Provider Obstetrics & Gynecology
DX: O13.3 Gestational [pregnancy-induced] hypertension without significant proteinuria, third trimester (principal); Z3A.37 37 weeks gestation of pregnancy
CPT/HCPCS: 59025

== ENCOUNTER 2024-08-27 15:30 | Outpatient (CLI) | payer BC, SELFPAY ==
[2024-08-27 15:59] VITALS: BP 136/75; PULSE 77
[2024-08-27 16:14] LABS: HCT 37.1 % (36.0-46.0); HGB 12.2 g/dL (11.2-15.7); MCH 29.6 pg (27.0-33.0); MCHC 32.9 % (32.0-36.0); MCV 90 fL (80-95); MPV 10.2 fL (8.0-11.0); Platelet Count 291 10^3/uL (130-400); RBC 4.12 10^6/uL (3.93-5.22); RDW 12.4 % (11.7-14.6); RDW-SD 40.9 fL; WBC 13.92 10^3/uL (4.4-10.8)
[2024-08-27 16:41] LABS: ALT 21 U/L (14-59); AST 17 U/L (15-37); Albumin 2.9 g/dL (3.4-5.0); Alkaline Phosphatase 128 U/L (46-116); Anion Gap 12.8 mmol/L (3-11); BUN 12 mg/dL (7-18); Bilirubin, Total 0.2 mg/dL (0.2-1.0); CO2 21.2 mmol/L (21.0-32.0); Calcium 9.7 mg/dL (8.5-10.1); Chloride 102 mmol/L (98-107); Estimated GFR 128.52 (mL/min/1.73m2); Glucose 149 mg/dL (74-106); Potassium 4.2 mmol/L (3.5-5.1); Sodium 136 mmol/L (136-145); Total Protein 6.8 g/dL (6.4-8.2)
[2024-08-27 17:11] VITALS: BP 136/75; PULSE 77; TEMP 36.7
[2024-08-27 17:56] LABS: PROTEIN 9.0 mg/dL; Prot/Crea Ur Ratio 0.25
[2024-09-04 09:38] VITALS: BP 136/75; PULSE 77; TEMP 36.7
--- NOTE | 2024-09-04 09:38 | W.OBNST ---
Date of service: 08/27/24 Time of Service: 09:38 NST Evaluation Reason for NST Reasons for Nonstress Test: GESTATIONAL HYPERTENSION Gestational Age Gestational Age in Weeks and Days: 37 Weeks and 6Days Test and Monitor Explained Test/Monitor Explained: Test Explained, Monitor Explained and Patient Verbalized Understanding Vital Signs Blood Pressure: 136/75 Pulse: 77 Temperature: 98.1 F NST Information Date on Monitor: 08/27/24 Time on Monitor: 15:56 Date off Monitor: 08/27/24 Time off Monitor: 16:20 Total Time on Monitor: 24 NST Interventions: None NST Evaluation Patient States Movement: Present FHR Baseline: 130 Variability: Moderate 6-25 bpm Accelerations: 15x15 Decelerations: None NST Results: Reactive Note Ultrasound Done: N/A. NST Note Note: Category 1, reactive NST NST Reviewed and Verified by: Bettie Isaac
== END 2024-08-27 16:30 ==
LOC: BCD 15:33 → OBS 15:37
PROVIDERS: PCP Nurse Practitioner; Visit Provider Obstetrics & Gynecology
DX: O12.13 Gestational proteinuria, third trimester (principal); Z3A.37 37 weeks gestation of pregnancy
CPT/HCPCS: 80053; 85027; 59025; 82565; 84156

== ENCOUNTER 2024-08-30 07:10 | Outpatient (CLI) | payer BC, SELFPAY ==
[2024-08-30 09:02] VITALS: BP 145/67; PULSE 75; TEMP 36.7
--- NOTE | 2024-08-30 10:07 | W.OBNST ---
Date of service: 08/30/24 Time of Service: 10:07 NST Evaluation Reason for NST Reasons for Nonstress Test: GESTATIONAL HYPERTENSION Gestational Age Gestational Age in Weeks and Days: 37 Weeks and 5Days Test and Monitor Explained Test/Monitor Explained: Test Explained and Monitor Explained Vital Signs Blood Pressure: 145/67 Pulse: 75 Temperature: 98.1 F Urine Results Urine Protein: Positive Urine Ketones: Negative Urine Glucose: Negative Urine Blood: Positive NST Information Date on Monitor: 08/30/24 Time on Monitor: 09:04 Date off Monitor: 08/30/24 Time off Monitor: 09:50 Total Time on Monitor: 46 NST Interventions: PO Hydration NST Evaluation Patient States Movement: Present FHR Baseline: 145 Variability: Moderate 6-25 bpm Accelerations: 15x15 Decelerations: None NST Results: Reactive Note Ultrasound Done: Presentation (Cephalic) Presentation Results: Cephalic Coding for Presentation w/NST: Completed Exam. NST Note Note: Patient seen in the center today for surveillance, ultrasound, and evaluation. She presented slightly early for her nonstress test today due to irregular contractions. She has had about 2 contractions on the monitor which palpate mild to moderate. Cervical exam confirms a cervix that is closed, 30% effaced, posterior. Ultrasound confirms cephalic presentation with appropriate fluid and deepest vertical pocket pocket of 4 cm. Patient is not in active labor with reassuring surveillance. She did drop off a 24-hour urine collection for creatinine clearance and total protein. She will be seen twice weekly for surveillance up until the point of her scheduled repeat delivery. If she comes in in active labor, she may opt for a trial of labor. The risk, benefits, and alternatives again were discussed today. All questions were answered. NST Reviewed and Verified by: Bettie Isaac
[2024-08-30 10:09] VITALS: BP 145/67; PULSE 75; TEMP 36.7
[2024-08-30 10:48] LABS: Creatinine,Urine 47.93 mg/dL; PROTEIN 20.0 mg/dL (0.0-11.9)
[2024-08-30 10:49] LABS: Creatinine,24hr Ur 1.29 g/24hr (0.60-1.80); TOTAL PROTEIN,URINE TIMED 540.0 mg/24hr (0.0-149.1); Total Volume 2700 ml
== END 2024-08-30 10:00 | disposition other institution (70) ==
LOC: BCD 07:10 → OBS 08:57
PROVIDERS: PCP Nurse Practitioner; Visit Provider Obstetrics & Gynecology
DX: O13.3 Gestational [pregnancy-induced] hypertension without significant proteinuria, third trimester (principal); Z3A.37 37 weeks gestation of pregnancy; O47.1 False labor at or after 37 completed weeks of gestation
CPT/HCPCS: 59025; 81050; 82570; 84155

== ENCOUNTER 2024-08-31 18:19 | Inpatient (IN) | payer BC, SELFPAY ==
[2024-08-31] VITALS (8 sets, daily range): BP systolic 126–154; BP diastolic 56–74; PULSE 59–75; RESP 16–18; TEMP 36.6–37.1; O2SAT 98; BMI 49.4
[2024-08-31] MEDS: Lactated Ringers 1,000 ML 200 ML IV ×2 (18:00→21:32)
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
[2024-08-31 18:41] LABS: HCT 36.4 % (36.0-46.0); HGB 12.3 g/dL (11.2-15.7); MCH 30.0 pg (27.0-33.0); MCHC 33.8 % (32.0-36.0); MCV 89 fL (80-95); MPV 9.9 fL (8.0-11.0); Platelet Count 294 10^3/uL (130-400); RBC 4.10 10^6/uL (3.93-5.22); RDW 12.4 % (11.7-14.6); RDW-SD 40.1 fL; WBC 14.17 10^3/uL (4.4-10.8)
[2024-08-31 19:06] LABS: ALT 20 U/L (14-59); AST 14 U/L (15-37); Albumin 2.9 g/dL (3.4-5.0); Alkaline Phosphatase 124 U/L (46-116); Anion Gap 12.5 mmol/L (3-11); BUN 13 mg/dL (7-18); Bilirubin, Total 0.2 mg/dL (0.2-1.0); CO2 21.5 mmol/L (21.0-32.0); Calcium 9.2 mg/dL (8.5-10.1); Chloride 102 mmol/L (98-107); Estimated GFR 128.52 (mL/min/1.73m2); Glucose 90 mg/dL (74-106); Potassium 3.7 mmol/L (3.5-5.1); Sodium 136 mmol/L (136-145); Total Protein 7.3 g/dL (6.4-8.2)
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
[2024-08-31] MEDS: ceFAZolin 2 GM/50 ML BAG IVPB (20:00)
[2024-08-31] MEDS: AZITHROMYCIN 500 MG in Normal Saline 250 ML 250 MG IVPB (20:00)
[2024-08-31] MEDS: Bupivacaine 0.25% Pres-Free 30 ML VIAL (20:32)
--- NOTE | 2024-08-31 21:45 | ROE_ITS ---
Operative Note Operative Note PRE-OP DIAGNOSIS: 37 week gestation, history of - declines TOLAC, pre- eclampsia without severe features POST-OP DIAGNOSIS: same Moderate peritoneal adhesions PROCEDURE: Repeat Section SURGEON: Dilcia López HEALTH AND WELLNESS COACH: Mary Escalera ANESTHESIA TYPE: Spinal Refer to Anesthesia Record ESTIMATED BLOOD LOSS: 500 PATHOLOGY: other (placenta) COMPLICATIONS: None Patient was transported to: PACU Patient's condition: stable Indications: 29 yo (h/o x1) at 37 6/7 as dated by FDLMP equal to LMP presented to L&D for contractions that had been occurring since the prior evening. Her was complicated by pre-eclampsia without severe features. She was found to be contraction with SVE /-2 with a bulging bag. She ultimately declined TOLAC and desired section. She was consented for repeat section. Findings: Bladder noted to be adhered high along anterior abdominal wall with notable omental scarring within the pelvic cavity. Meconium stained fluid. Viable female infant (Korina Lomeli) in cephalic presentation with nuchal cord x1. Procedure Description: Patient was taken to the OR with IV fluids running. 2 grams and and 500 mg Azithromycin was administered for prophylaxis. Spinal anesthesia established without issue and ultimately found to be adequate. She was positioned into supine positioning with her legs abducted out to her sides. A vaginal prep was performed and a catheter was placed using sterile technique. The abdomen was then prepped with chlorhexidine and allowed to dry for 3 minutes. The patient was then draped in sterile dressing. A timeout was performed, and the patient and procedure were verified. The intended site for incision was first injected with 1% lidocaine. A Pfannenstiel incision was created using a #10 blade, and the incision was carried down through the subcutaneous tissues to the fascia using Bovie cautery. The fascia was then incised and the incision was carried laterally using curved Cain's and pickups. The anterior leaf of the fascia was tented up using Evans clamps, and the underlying rectus muscle was dissected off using combination of blunt and sharp dissection. The same was done for the inferior leaf of fascia. The midline of the rectus muscle was identified and carefully to reveal the underlying peritoneum which was dissected open high again using a combination of blunt and sharp dissection. Upon entering the pelvic cavity notable adhesion of the bladder to the anterior abdominal wall was appreciated as well as notable scarring of the omentum throughout the cavity. These adhesions were rectified with very careful and methodical sharp dissection. The lower uterine segment was then visualized and found to be adequate. An Macario retractor was placed. A low transverse incision was created using a fresh #10 blade. Meconium stained fluid was appreciated. The head was gently supported and brought to the level of the hysterotomy with careful attention to avoid using the hysterotomy as a fulcrum. The nurses assistant then applied fundal pressure to facilitate complete delivery of the fetus without issue. The baby was immediately vigorous. The cord was double clamped and cut. A section of cord was set aside for cord gases, and cord blood was collected. The placenta was then removed fully intact without issue. The uterus was externalized and wiped clean with a new sponge. Reyes forceps were used to grasp the anterior lip and apices of the hysterotomy. The hysterotomy was then closed using a running 0 Vicryl stitch in 2 layers. Once closed, the uterus was returned to the pelvic cavity, and inspection of the fallopian tubes and ovaries was unremarkable. Thorough irrigation revealed a small area of bleeding at the suture in the midline of the hysterotomy repair. This was addressed and brought to be hemostatic using a 2-0 Vicryl [id number] stitch. Interceed was placed over the incision and dampened with a small amount of saline. Peritoneum was then carefully closed using a 2-0 Monocryl, and the inferior margin of the rectus muscle was brought together using the leftover 2-0 Monocryl to encouraged the bladder to avoid protruding. An assessment of the rectus muscle appreciated good hemostasis. The fascia was then closed using a running 0 Vicryl suture. The subcutaneous tissues were inspected and found to be hemostatic. The subcutaneous tissues were closed with a running stitch of 2-0 Monocryl. The skin was then closed using 4-0 Monocryl. The wound was dressed with an ABD pad, 4 x 4's, and Medipore dressing. All of instruments were removed and all counts were correct. The patient tolerated the procedure well. Date of Procedure: 08/31/24
[2024-08-31] MEDS: Ketorolac 30 MG/ML VIAL IVP (22:30)
[2024-09-01] VITALS (15 sets, daily range): BP systolic 81–128; BP diastolic 54–75; PULSE 64–86; RESP 16–18; TEMP 36.5–36.7; O2SAT 98–100
[2024-09-01] MEDS: oxyCODONE 5 MG TAB PO (02:12)
[2024-09-01] MEDS: Normal Saline Flush 10 ML SYR IVP ×2 (03:47→18:12)
[2024-09-01] MEDS: Ketorolac 30 MG/ML VIAL IVP ×3 (05:40→18:13)
--- NOTE | 2024-09-01 07:17 | W.PM.PROGNOT ---
Date of Service Date of service: 09/01/24 Time of Service: 07:17 Assessment and Plan Assessment and plan (1) S/P section: Status: Acute Assessment and plan: 29yo G2 now P2-0-0-2 ([facility] x2) s/p 37 6/7 repeat low transverse section from 09/10/2024 PM, EBL 500 ? Rh+/rubella immune/VZV immune/GBS negative ? complicated by preeclampsia without severe features, obesity in the setting of excessive weight gain, marginal cord insertion, tandem nursing, and history of section ? Intrapartum course largely uncomplicated; bladder noted to have scarred high within the pelvis ? course currently uncomplicated ? Tolerating a regular diet ? Lane still in place ? Not yet ambulating ? Incision covered ? ? Depression counseling pending ? Narcotic counseling pending ? Contraception counseling pending ? Discharge planning pending - - - - - - - - - - - - 09/01/2024 AM (Rene): Patient appears clinically stable. Plan for today is progressive ambulation and pain control titration. Discussed plan of care with patient. Continue monitoring for s/sx of preE and monitoring BP's; labs on admission stable from prior. - - - - - - - - - - - - (2) Pre-eclampsia affecting childbirth: Status: Acute Subjective Subjective Patient reports: no new complaints Interval history since last seen: 29 yo G2 now P2002 ([facility] x2) s/p 37 wk RLTCS from 08/31/2024 PM, EBL 500. Slept well overnight. Reports adequate pain control. Lochia appropriate. No nausea / vomiting. Lane still in place. Not yet ambulating. Denies any s/sx of preE. Exam Const General: cooperative and healthy appearing Resp Effort & Inspection: normal respiratory effort GI Other: Patient noted to be laying on her left-side with pillow hugged along abdomen without issue. Extrem Other: +1 bilateral lower extremity edema consistent with Psych Mental Status: mental status grossly normal Mood: congruent mood Objective Last Vital Signs Temp 97.8 F 09/01/24 06:00 Pulse 77 09/01/24 06:00 Resp 18 09/01/24 06:00 BP 107/63 09/01/24 06:00 Pulse Ox 98 09/01/24 01:01 Laboratory Results - last 24 hr 08/31/24 08/31/24 18:30 18:44 WBC 14.17 H RBC 4.10 Hgb 12.3 Hct 36.4 MCV 89 MCH 30.0 MCHC 33.8 RDW 12.4 Plt Count 294 MPV 9.9 Sodium 136 Potassium 3.7 Chloride 102 Carbon Dioxide 21.5 Anion Gap 12.5 H BUN 13 Creatinine 0.5 L Est GFR (CKD-EPI 2020) 128.52 Glucose 90 Calcium 9.2 Total Bilirubin 0.2 AST 14 L ALT 20 Alkaline Phosphatase 124 H Total Protein 7.3 Albumin 2.9 L ABO/Rh B Positive Antibody Screen NEGATIVE Time Spent with Patient Time Spent with Patient: 25-34 minutes Time was spent: preparing to see the patient(eg.review tests), obtaining and/or reviewing separately otained hiistory, ordering medications,tests, procedures, referring, communicating with other health respiratory care practitioner, indepentently interpreting results, counseling the patient and care coordination
[2024-09-01] MEDS: Acetaminophen 325 MG TAB 650 MG PO ×4 (07:53→21:55)
--- NOTE | 2024-09-01 13:38 | W.ANESPOSTOP ---
Postoperative Evaluation Date, Time and Location Date Performed: 09/01/24 Time Performed: 13:38 Patient Location: Obstetrics Vital Signs Most Recent Imported Vital Signs: Most Recent Vital Signs Temp Pulse Resp BP Pulse Ox 36.5 C 71 16 81/54 L 98 09/01/24 08:02 09/01/24 08:02 09/01/24 08:02 09/01/24 08:02 09/01/24 01:01 Pain Score Most Recent Pain Score: Most Recent Pain Score Pain Level [Lower Abdomen] 2 09/01/24 08:02 Pain Level 3 09/01/24 12:01 Assessment Mental Status: Awake (Alert & Oriented to Patient Baseline) Airway and Respiratory Function: Patent airway with normal (patient baseline) respiratory exam Cardiovascular Function: Hemodynamically Stable Hydration Status: Adequately Hydrated Nausea & Vomiting: No Nausea or Vomiting Pain: Pain is tolerable per patient Peripheral Nerve Block: Patient did not receive a nerve block Postoperative Comments:: Pt. ambulatory with and baby, spinal has worn off with no concerns.
[2024-09-01] MEDS: Ibuprofen 600 MG TAB PO (21:54)
[2024-09-02] MEDS: Acetaminophen 325 MG TAB 650 MG PO ×3 (01:59→14:10)
[2024-09-02] MEDS: Ibuprofen 600 MG TAB PO ×2 (04:11→10:41)
[2024-09-02] MEDS: Prenatal Multivitamin w/CA,FE TAB 1 TAB PO (08:00)
[2024-09-02 08:30] VITALS: BP 128/56; PULSE 71; RESP 16; TEMP 36.7
[2024-09-02 13:00] VITALS: BP 121/76; PULSE 88; RESP 18
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
[2024-09-02] MEDS: oxyCODONE 5 MG TAB PO (14:38)
== END 2024-09-02 15:00 | disposition home or self-care (01) | DRG 788 ==
LOC: BCD 18:35 → OBS 18:35
PROVIDERS: Admitting Provider Obstetrics & Gynecology; PCP Nurse Practitioner; Visit Provider Obstetrics & Gynecology
PROC: 10D00Z1 Extraction of Products of Conception, Low, Open Approach (ICD-10-PCS; CPT 59514; principal; 2024-08-31 19:05)
DX: O14.94 Unspecified pre-eclampsia, complicating childbirth (principal); Z37.0 Single live birth; Z3A.37 37 weeks gestation of pregnancy; O14.04 Mild to moderate pre-eclampsia, complicating childbirth; O34.211 Maternal care for low transverse scar from previous cesarean delivery; O77.0 Labor and delivery complicated by meconium in amniotic fluid; O99.892 Other specified diseases and conditions complicating childbirth; O99.214 Obesity complicating childbirth; E66.9 Obesity, unspecified; O26.03 Excessive weight gain in pregnancy, third trimester; O69.89X0 Labor and delivery complicated by other cord complications, not applicable or unspecified; N85.8 Other specified noninflammatory disorders of uterus; N73.6 Female pelvic peritoneal adhesions (postinfective)
CPT/HCPCS: 59514; 36415; 80053; 85027; 86850; 86900; 86901; 88307; J0456; J0665; J0690; J1885; J2274; J2405; J3010